=== PATIENT | male | born 1950 | race Caucasian/White ===

== ENCOUNTER 2019-06-18 12:24 | Outpatient (CLI) | payer MEDICARE, BC, SELFPAY ==
--- NOTE | ~2019-06-18 | US_ITS ---
EXAMINATION: US carotid duplex BI DATE: 06/18/2019 13:00 INDICATION: Dizziness TECHNIQUE: Grayscale, color Doppler, and pulsed Doppler images of the cervical carotid arteries were obtained. The degree of vessel stenosis is placed in one of the following categories: normal, <50%, 5 0-69%, >=70% but less than near-occlusion, near-occlusion, or total occlusion. Note that percent sten osis relative to normal distal artery lumen diameter is indirectly measured from velocity measurement s as described by Gonzalez, et al. Radiology 2003; 229:340-346. Notes: Normal: Peak systolic velocity <125 centimeters/sec and no plaque <50%. Peak systolic velocity <125 ( EDV <40; ICA/CCA PSV ratio <2.0; used these factors only a tandem lesions or low cardiac output or co ntralateral disease) 50-69 %: PSV 125-230 (EDV 40-100; ratio 2-4) >= 70% but less than near occlusion: PSV greater than 230 (EDV > 100; ratio> 4.0) Near Occlusion: PSV that is variable; markedly narrowed lumen Occlusion: Absent flow on color/spectral Doppler and no lumen on baltazar scale. COMPARISON: None. FINDINGS: RIGHT: The right common carotid artery (CCA) peak systolic velocity (PSV) is 108 cm/s. The right internal ca rotid artery (ICA) PSV is 49 cm/s. The right ICA end-diastolic velocity (EDV) is 12 cm/s. The right I CA/CCA PSV ratio is 0.5. The external carotid artery (ECA) PSV is 63 cm/s. There is antegrade flow in the right vertebral artery. LEFT: The left CCA PSV is 129 cm/s. The left ICA PSV is 73 cm/s. The left ICA EDV is 21 cm/s. The left ICA/ CCA PSV ratio is 0.6. The ECA PSV is 58 cm/s. There is antegrade flow in the left vertebral artery. IMPRESSION: 1. Less than 50% stenosis in the right internal carotid artery by sonographic criteria. 2. Less than 50% stenosis in the left internal carotid artery by sonographic criteria. Reviewed, dictated and finalized at location B. AD SINGER IMPRESSION: 1. Less than 50% stenosis in the right internal carotid artery by sonographic [address]. 2. Less than 50% stenosis in the left internal carotid artery by sonographic [place].
== END 2019-06-18 12:25 | disposition home or self-care (01) ==
PROVIDERS: PCP Family Medicine; Visit Provider Family Medicine
DX: R42 Dizziness and giddiness (principal); I65.23 Occlusion and stenosis of bilateral carotid arteries
CPT/HCPCS: 93880

== ENCOUNTER → 2022-03-22 11:20 | Outpatient (CLI) | payer MEDICARE, BC, SELFPAY ==
--- NOTE | ~2022-03-22 | XR_ITS ---
XR hip RT min 3V w AP pelvis DATE: 03/22/2022 11:34 INDICATION: Anterior right hip pain for many years TECHNIQUE: AP pelvis. AP and lateral views of right hip COMPARISON: None FINDINGS: The pubic symphysis and sacroiliac joints are intact. No pelvic fracture or bone destructio n is detected. There is mild right hip osteoarthritis including mild spurring of the right femoral head. Hip joint s paces are symmetric and relatively well preserved. No fracture or dislocation, avascular necrosis or bone destruction of the right hip is detected. IMPRESSION: Mild right hip osteoarthritis Reviewed, dictated and finalized at location B. LASTER
== END ==
PROVIDERS: PCP Family Medicine; Visit Provider Physician Assistant
DX: M25.551 Pain in right hip (principal); M16.11 Unilateral primary osteoarthritis, right hip
CPT/HCPCS: 73502

== ENCOUNTER → 2022-04-30 07:47 | Outpatient (CLI) | payer MEDICARE, BC, SELFPAY ==
--- NOTE | ~2022-04-30 | MR_ITS ---
MRI of the lumbar spine Clinical History: Radiculopathy Technique: Axial T2-weighted images, and sagittal T1-weighted, T2-weighted, and T2 fat-sat images wer e acquired. Findings: There is no fracture or subluxation of the lumbar spine. Vertebral bodies maintain normal h eight and alignment. No focal bone marrow signal abnormality identified. At L1-L2, there is minimal disc bulge. There is facet arthropathy. No lew spinal canal stenosis or neural foraminal narrowing. At L2-L3, diffuse disc bulge and facet arthropathy result in severe thecal sac compression. There is minimal bilateral neural foraminal compromise. At L3-L4, mild disc bulge and mild facet arthropathy are present. No lew spinal canal stenosis pres ent. There is probable minimal bilateral neural foraminal narrowing. At L4-L5, disc bulge and facet arthropathy result in focal severe thecal sac compression. There is mi ld bilateral neural foraminal narrowing. At L5-S1, there is minimal disc bulge with facet arthropathy. There is effacement of the thecal sac w hich appears to be due to focally prominent epidural fat. No neural foraminal narrowing evident. Paravertebral soft tissues are unremarkable. 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 Additional mild degenerative changes, as detailed above. Focally prominent effacement of thecal sac a t L5-S1, which appears to be due to prominent epidural fat. Reviewed, dictated and finalized at [facility]. 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 Additional mild degenerative changes, as detailed above. Focally prominent effa cement of thecal sac at L5-S1, which appears to be due to prominent epidural fa t.
== END ==
PROVIDERS: PCP Family Medicine; Visit Provider Pain Medicine Pain Medicine
DX: M54.16 Radiculopathy, lumbar region (principal); M48.07 Spinal stenosis, lumbosacral region
CPT/HCPCS: 72148

== ENCOUNTER 2023-12-24 09:45 | Inpatient (IN) | payer MEDICARE, BC, SELFPAY ==
[2023-12-24] VITALS (42 sets, daily range): BP systolic 114–181; BP diastolic 73–109; PULSE 84–115; RESP 0–29; TEMP 36.5–36.6; O2SAT 90–99
--- NOTE | ~2023-12-24 | CT_ITS ---
EXAMINATION: CTA chest PE protocol DATE: 12/24/2023 11:59 INDICATION: Shortness of breath with elevated d-dimer and syncope TECHNIQUE: Computed tomography (CT) pulmonary angiogram of the chest was performed with 100 mL Omnipa que-350 intravenous contrast. Additional 3D reconstructions utilizing coronal maximum intensity proje ction (MIP) were performed. Automated exposure control and iterative reconstruction technique were em ployed. The dose-length product was 977.85 mGy-cm. COMPARISON: None FINDINGS: Subtle embolism extending across the bifurcation of the main pulmonary artery and into each of the lo bar and multiple segmental pulmonary arteries in both lungs. There are regions of groundglass opacity in the posterior segment of the left upper lobe and the superior segment of the left lower lobe whic h could be due to pulmonary infarcts or pneumonia. Mild dependent atelectasis in the bilateral lower lobes. No pulmonary edema, pleural effusion or pneumothorax. Heart size is normal. No leftward bowing of the ventricular septum to suggest right heart strain. No pericardial effusion. Thoracic aorta is normal in caliber with no dissection. No pathologically enlarged thoracic lymphadenopathy. Likely wali or bariatric surgery with suture line at the proximal stomach. There are a few splenic and hepatic ca lcifications consistent with old granulomatous disease. IMPRESSION: 1. Pulmonary embolism with large clot burden including a saddle embolism which extends into each of t he lobes of both lungs. There is however no evident right heart strain. 2. Regions of groundglass opacity in the left upper and left lower lobes which could represent pulmon zen infarcts or pneumonia. Reviewed, dictated and finalized at location B. IMPRESSION: 1. Pulmonary embolism with large clot burden including a saddle embolism which extends into each of the lobes of both lungs. There is however no evident right heart strain. 2. Regions of groundglass opacity in the left upper and left lower lobes which could represent pulmonary infarcts or pneumonia.
--- NOTE | ~2023-12-24 | CT_ITS ---
EXAMINATION: CT brain wo con DATE: 12/24/2023 11:23 INDICATION: Syncope TECHNIQUE: Computed tomography (CT) of the head was performed without intravenous contrast. Sagittal and coronal reconstructions were performed. The mA was adjusted according to patient size. Iterative reconstruction technique was employed. The dose-length product was 605.33 mGy-cm. COMPARISON: Brain MR dated 11/17/2013 FINDINGS: No acute intracranial hemorrhage, acute infarction or abnormal extra axial fluid collection. There is mild scattered white matter hypoattenuation consistent with chronic small vessel ischemic disease. Ventricles are normal and symmetric. No mass/mass effect. The orbits, paranasal sinuses and mastoid a ir cells are normal. IMPRESSION: 1. Mild scattered white matter hypoattenuation consistent with chronic small vessel ischemic disease. No acute intracranial process. Reviewed, dictated and finalized at location B. IMPRESSION: 1. Mild scattered white matter hypoattenuation consistent with chronic small ve ssel ischemic disease. No acute intracranial process.
--- NOTE | ~2023-12-24 | XR_ITS ---
EXAMINATION: XR chest 1V portable DATE: 12/24/2023 10:43 INDICATION: Dyspnea. TECHNIQUE: A single frontal view of the chest was obtained. COMPARISON: None. FINDINGS: There is no pneumonia, pleural effusion, or pneumothorax. The heart size is normal. IMPRESSION: 1. No acute cardiopulmonary disease. Reviewed, dictated and finalized at location A.
--- NOTE | ~2023-12-24 | US_ITS ---
EXAMINATION: US venous doppler [facility] DATE: 12/28/2023 10:33 INDICATION: TECHNIQUE: Grayscale ultrasound images without and with compression and Doppler ultrasound images of the bilateral lower extremity veins were obtained. COMPARISON: None. FINDINGS: Noncompressible deep venous anastomosis in the right popliteal vein, gas in the spleen and. Posterior tibial and peroneal veins. The visualized portions of right common femoral vein, profunda (deep) fem oral vein, femoral vein and greater saphenous vein outflow are patent. The visualized portions of left common femoral vein, profunda femoral vein, femoral vein, popliteal v ein, posterior tibial veins, peroneal veins, gastrocnemius vein and greater saphenous vein outflow ar e patent. IMPRESSION: 1. Deep venous anastomosis at the below the right knee in the popliteal, gastrocnemius, posterior ti bial and peroneal veins. 2. No evident deep venous anastomosis in the left lower limb. Reviewed, dictated and finalized at location A. IMPRESSION: 1. Deep venous anastomosis at the below the right knee in the popliteal, gastr ocnemius, posterior tibial and peroneal veins. 2. No evident deep venous anastomosis in the left lower limb.
--- NOTE | ~2023-12-24 | XR_ITS ---
XR chest 1V portable Ordering provider: Marc Aguero MD History: 73 years Male with . Saddle PE follow up . Comparison: December 24, 2023 FINDINGS: MEDIASTINUM: The cardiac silhouette is not enlarged. LUNGS: No infiltrates, effusions or pneumothorax. OTHER: No free air under the diaphragm. Degenerative the spine. IMPRESSION: No acute cardiopulmonary pathology. Reviewed, dictated and finalized at location A.
--- NOTE | 2023-12-24 10:00 | ECG_ITS ---
Test Date: 2023-12-24 10:04:26 Measurements Intervals [place] Rate: 101 P: 32 RI: 185 QRS: 34 QRSD: 105 T: 8 QT: 344 QTc: 448 Interpretive Statements SINUS TACHYCARDIA DELAYED PRECORDIAL R/S TRANSITION MINIMAL Q WAVES- INFERIOR LEADS BASELINE WANDER- AVR, AVL, AVF, V1, V3-V4, V6 BORDERLINE ECG No previous ECG available for comparison Electronically Signed On 12-24-2023 10:07:55 CDT by Justin Jones D.O.
[2023-12-24 10:32] LABS: Basophils Absolute Auto 0.1 K/mm3 (0.0-0.1); Basophils Percent Auto 0.6 % (0.2-1.2); Eosinophils Absolute Auto 0.2 K/mm3 (0-0.3); Eosinophils Percent Auto 2.6 % (0-4.4); Hematocrit 47.1 % (42.0-52.0); Hemoglobin 15.2 g/dL (14.0-18.0); Immature Granulocyte Absolute 0.06 K/mm3 (0.00-0.031); Immature Granulocyte Percent A 0.7 % (0-0.5); Lymphocytes Absolute Auto 1.47 K/mm3 (0.9-3.2); Lymphocytes Percent Auto 16.8 % (18.3-44.2); Mean Corpuscular HGB Conc 32.3 g/dl (32-36); Mean Corpuscular Hemoglobin 29.6 pg (26-34); Mean Corpuscular Volume 91.8 fl (80-100); Mean Platelet Volume 9.7 fl (7.4-10.4); Monocytes Absolute Auto 0.6 K/mm3 (0.1-0.6); Monocytes Percent Auto 6.5 % (2.6-8.5); Neutrophils Absolute Auto 6.4 K/mm3 (1.3-6.7); Neutrophils Percent Auto 72.8 % (45.5-73.1); Platelet Count Result 219 k/mm3 (150-375); Red Blood Count 5.13 M/mm3 (4.6-6.20); Red Cell Distribution Width 13.4 % (11.5-14.5); White Blood Count 8.7 K/mm3 (4.5-10.0)
[2023-12-24 10:43] LABS: Prothrombin Time 13.2 Seconds (11.1-14.7)
[2023-12-24 10:44] LABS: Partial Thromboplastin Time 26.6 Seconds (22.3-36.8)
[2023-12-24 10:49] LABS: Alanine Aminotransferase 18 U/L (6-50); Albumin Level 4.1 g/dL (3.5-5.1); Alkaline Phosphatase 49 U/L (38-126); Anion Gap 12 mmol/L (4-12); Aspartate Amino Transferase 34 U/L (17-59); Bilirubin,Total 0.9 mg/dL (0.2-1.3); Blood Urea Nitrogen 23 mg/dL (9-20); Calcium 8.9 mg/dL (8.4-10.2); Carbon Dioxide 20 mmol/L (22-30); Chloride 106 mmol/L (98-107); Estimated CRCL calculation 68 ml/min; Estimated Glomerular Filt Rate 54; Glucose 161 mg/dL (65-110); Potassium 4.5 mmol/L (3.4-5.0); Sodium 138 mmol/L (137-145)
--- NOTE | 2023-12-24 11:00 | ED.SOB ---
HPI - SOB/Dyspnea General Chief Complaint: Shortness of Breath/Dyspnea <Marylou Krishnan PA-C - Last Filed: 12/28/23 14:32> Stated Complaint: SOB <KINGSLEY Bustamante Last Filed: 12/28/23 14:32> Time Seen by Provider: 12/24/23 10:57 <KINGSLEY Bustamante Last Filed: 12/28/23 14:32> Source: patient <KINGSLEY Bustamante Last Filed: 12/28/23 14:32> Mode of arrival: ambulatory <KINGSLEY Bustamante Last Filed: 12/28/23 14:32> Limitations: no limitations <KINGSLEY Bustamante Last Filed: 12/28/23 14:32> History of Present Illness HPI Narrative: This is a 73 year old male that presents to the ER after syncopal episode last night. Reports he has history of sciatica on the right. He has not been very active because of this. He has had worsening shortness of breath with exertion over the last couple of months. Denies chest pain. Reports last night he had just walked up the steps to his room and felt very short of breath. He was leaned over his bed trying to catch his breath. He woke up on the floor about 20 minutes later. Denies any focal injuries after this. <Marylou Krishnan PA-C - Last Filed: 12/28/23 14:32> Related Data Home Medications: Home Medications Medication Instructions Recorded Confirmed diphenhydramine HCl 50 mg capsule 50 mg PO HS PRN Insomnia 02/22/19 12/27/23 dbvbglmr-ldk-qhzzl acid 0.4 1 tablet PO DAILY 02/22/19 12/27/23 mg-lycopene 300 mcg-lutein 250 mcg tablet (Centrum Silver) omeprazole 20 mg capsule,delayed 20 mg PO DAILY 02/22/19 12/27/23 release icosapent ethyl 1 gram capsule 2 g PO BIDWM 12/27/23 12/27/23 <KINGSLEY Bustamante Last Filed: 12/28/23 14:32> Allergies/Adverse Reactions: Allergies Allergy/AdvReac Type Severity Reaction Status Date / Time metformin AdvReac Severe Diarrhea Verified 12/25/23 07:28 Nsrscwu-BZF-AfH Reductase AdvReac Severe Cramping Verified 12/25/23 07:28 Inhibitor of the [Ytomzhj-Mgo-Yen Reductase Muscles Inhibitor] <Marylou Krishnan PA-C - Last Filed: 12/28/23 14:32> Review of Systems Review of Systems: CONSTITUTIONAL: Denies fever CARDIOVASCULAR: Denies chest pain RESPIRATORY: Reports dyspnea. <Marylou Krishnan PA-C - Last Filed: 12/28/23 14:32> All systems reviewed & are unremarkable except as noted in HPI and below <Marylou Krishnan PA-C - Last Filed: 12/28/23 14:32> [facility] Past Medical History Medical History: Medical History Bilateral carotid bruits Borderline hypothyroidism BPV (benign positional vertigo) Gall bladder disease GERD (gastroesophageal reflux disease) Hyperlipidemia Hypertension Lumbar stenosis Morbid obesity with BMI of 50.0-59.9, adult Peripheral polyneuropathy Sciatica Severe obstructive sleep apnea Type 2 diabetes mellitus with hyperglycemia Vitamin D deficiency <Marylou Krishnan PA-C - Last Filed: 12/28/23 14:32> Surgical History Surgical History: Surgical History History of cholecystectomy History of gastric bypass w/reversal History of tonsillectomy <Marlyou Krishnan PA-C - Last Filed: 12/28/23 14:32> Family History Family History: Family History Father Acute myocardial infarction Grandparent Acute myocardial infarction Mother Acute myocardial infarction Other Diabetes mellitus Family history of arthritis Family history of cardiovascular disease Hypertension <Marylou Krishnan PA-C - Last Filed: 12/28/23 14:32> Social History Social History: Social History Smoking status: Never smoker Second hand tobacco smoke exposure: No Alcohol intake: never Alcohol use details: Rarely. Substance use: never Substance use type: does not use Do You Feel Safe in you
[2023-12-24 11:01] LABS: NT Pro B Type Natriuretic Pept 495 pg/mL (19.9-100); Troponin I 0.053 ng/mL (0.000-0.034)
[2023-12-24 11:29] LABS: D Dimer 9.11 ug/mL (<0.48)
[2023-12-24] MEDS: HEPARIN SODIUM 5,000 UNITS/ML VIAL 8500 UNITS IV PUSH (12:21)
[2023-12-24] MEDS: HEPARIN SOD/D5W 100 UNITS/ML 25,000 UNITS/250 ML BAG 15 UNITS IV CONT (12:33)
--- NOTE | 2023-12-24 13:58 | ECG_ITS ---
Test Date: 2023-12-24 13:58:23 Measurements Intervals [place] Rate: 93 P: 30 MN: 178 QRS: 29 QRSD: 102 T: 3 QT: 348 QTc: 435 Interpretive Statements SINUS RHYTHM BORDERLINE ST-T WAVE ABNORMALITY- ANT/INF LEADS BORDERLINE ECG Compared to ECG 12/24/2023 10:04:26 HEART RATE HAS DECREASED Electronically Signed On 12-24-2023 14:41:43 CDT by Justin Jones D.O.
[2023-12-24 14:32] LABS: Troponin I 0.044 ng/mL (0.000-0.034)
--- NOTE | 2023-12-24 14:38 | PC.NURSE ---
Patient has been accepted to the medical ICU at [facility] at this time. Gave triage report to Lamar at this time on the transfer line.
[2023-12-24 15:37] LABS: Glucose Point of Care 106 mg/dl (65-105)
[2023-12-24 19:07] LABS: Partial Thromboplastin Time 46.6 Seconds (22.3-36.8)
[2023-12-24] MEDS: METOPROLOL SUCCINATE EXT REL 50 MG TABCR 150 MG PO (19:28)
[2023-12-24] MEDS: hydroCHLOROthiazide 12.5 MG CAPSULE PO (19:28)
[2023-12-24] MEDS: LOSARTAN POTASSIUM 100 MG TABLET PO (19:29)
--- NOTE | 2023-12-24 19:35 | PC.NURSE ---
This RN titrated pt heparin drip from 15 mls/hr to 19mls/hr due to pts ptt results of 46.6. According to heparin drip protocols if ptt is less than 55 increase rate 4ml/hr.
--- NOTE | 2023-12-24 20:35 | PC.NURSE ---
Pt son left phone number Drew Epstein - Son [phone]
[2023-12-24 23:48] LABS: Glucose Point of Care 111 mg/dl (65-105)
[2023-12-25] VITALS (33 sets, daily range): BP systolic 134–166; BP diastolic 63–109; PULSE 81–102; RESP 13–35; TEMP 36.3–36.6; O2SAT 93–99
--- NOTE | 2023-12-25 00:17 | PC.NURSE ---
Pt was given hospital bed at 0010.
[2023-12-25 03:48] LABS: Basophils Absolute Auto 0.1 K/mm3 (0.0-0.1); Basophils Percent Auto 0.6 % (0.2-1.2); Eosinophils Absolute Auto 0.3 K/mm3 (0-0.3); Eosinophils Percent Auto 3.8 % (0-4.4); Hematocrit 44.3 % (42.0-52.0); Hemoglobin 14.4 g/dL (14.0-18.0); Immature Granulocyte Absolute 0.07 K/mm3 (0.00-0.031); Immature Granulocyte Percent A 0.8 % (0-0.5); Lymphocytes Absolute Auto 2.15 K/mm3 (0.9-3.2); Lymphocytes Percent Auto 24.9 % (18.3-44.2); Mean Corpuscular HGB Conc 32.5 g/dl (32-36); Mean Corpuscular Hemoglobin 29.8 pg (26-34); Mean Corpuscular Volume 91.5 fl (80-100); Mean Platelet Volume 9.9 fl (7.4-10.4); Monocytes Absolute Auto 0.6 K/mm3 (0.1-0.6); Monocytes Percent Auto 6.8 % (2.6-8.5); Neutrophils Absolute Auto 5.4 K/mm3 (1.3-6.7); Neutrophils Percent Auto 63.1 % (45.5-73.1); Platelet Count Result 196 k/mm3 (150-375); Red Blood Count 4.84 M/mm3 (4.6-6.20); Red Cell Distribution Width 13.5 % (11.5-14.5); White Blood Count 8.6 K/mm3 (4.5-10.0)
[2023-12-25 03:58] LABS: Prothrombin Time 13.3 Seconds (11.1-14.7)
[2023-12-25 03:59] LABS: Partial Thromboplastin Time 48.3 Seconds (22.3-36.8)
[2023-12-25] MEDS: HEPARIN SOD/D5W 100 UNITS/ML 25,000 UNITS/250 ML BAG 23 UNITS IV CONT (04:16)
--- NOTE | 2023-12-25 04:30 | PC.NURSE ---
This Rn titrated pt heparin drip by increasing it 4 mls/hr to be infusing at 23mls/hr due to last ptt results.
[2023-12-25] MEDS: HEPARIN SODIUM 5,000 UNITS/ML VIAL 8500 UNITS IV PUSH (05:47)
--- NOTE | 2023-12-25 05:51 | PC.NURSE ---
Late Entry Note: This RN adminstered 8500 unit bolus based on titration protocols due to results of ptt.
--- NOTE | 2023-12-25 09:21 | PC.NURSE ---
no beds available - remains on wait list
--- NOTE | 2023-12-25 11:15 | PC.NURSE ---
Pt asking for home dose of gabapentin. KINGSLEY Hickman made aware.
[2023-12-25] MEDS: GABAPENTIN 300 MG CAPSULE PO (11:36)
--- NOTE | 2023-12-25 13:03 | PC.NURSE ---
Pt ate entire lunch tray other than dessert
[2023-12-25] MEDS: METOPROLOL SUCCINATE EXT REL 100 MG TABCR PO (17:31)
[2023-12-25] MEDS: hydroCHLOROthiazide 12.5 MG CAPSULE PO (17:32)
[2023-12-25] MEDS: LOSARTAN POTASSIUM 100 MG TABLET PO (17:32)
[2023-12-25] MEDS: METOPROLOL SUCCINATE EXT REL 50 MG TABCR PO (17:32)
[2023-12-25] MEDS: HEPARIN SOD/D5W 100 UNITS/ML 25,000 UNITS/250 ML BAG 20 UNITS IV CONT (17:34)
--- NOTE | 2023-12-25 18:20 | PC.NURSE ---
No Bed - Remains on Bed wait list
--- NOTE | 2023-12-25 18:33 | PC.NURSE ---
PTT is 77. No bolus or titration necessary at this time.
--- NOTE | 2023-12-25 21:34 | PC.NURSE ---
Spoke with Monalisa from [facility] transfer for status update. Pt still on waitlist at this time.
--- NOTE | 2023-12-25 22:00 | PC.NURSE ---
Pt was able to ambulate to the restroom and freshen up with provided hygiene supplies. New gown provided.
[2023-12-25 23:20] LABS: Glucose Point of Care 162 mg/dl (65-105)
[2023-12-25 23:28] LABS: Partial Thromboplastin Time 68.5 Seconds (22.3-36.8)
--- NOTE | 2023-12-25 23:32 | ECG_ITS ---
Test Date: 2023-12-25 23:32:17 Measurements Intervals [place] Rate: 88 P: 32 CT: 196 QRS: 34 QRSD: 104 T: 21 QT: 370 QTc: 450 Interpretive Statements SINUS RHYTHM BASELINE ARTIFACT- I, II, AVR, AVL, AVF NORMAL ECG Compared to ECG 12/24/2023 13:58:23 No significant changes Electronically Signed On 12-26-2023 13:08:27 CDT by Justin Jones D.O.
[2023-12-25] MEDS: HEPARIN SODIUM 5,000 UNITS/ML VIAL 4000 UNITS IV PUSH (23:34)
[2023-12-26] VITALS (52 sets, daily range): BP systolic 114–158; BP diastolic 58–92; PULSE 78–100; RESP 14–31; TEMP 36.4–36.8; O2SAT 75–100
[2023-12-26] MEDS: HEPARIN SOD/D5W 100 UNITS/ML 25,000 UNITS/250 ML BAG 22 UNITS IV CONT ×2 (05:42→17:12)
[2023-12-26 06:13] LABS: Prothrombin Time 13.9 Seconds (11.1-14.7)
[2023-12-26 06:15] LABS: Partial Thromboplastin Time 92.2 Seconds (22.3-36.8)
--- NOTE | 2023-12-26 07:59 | PC.NURSE ---
Assumed care. Pt sleeping.
--- NOTE | 2023-12-26 10:40 | PC.NURSE ---
[facility] transfer center called, they will call when bed becomes available.
--- NOTE | 2023-12-26 11:42 | PC.NURSE ---
pt was concerned with his blood sugar due to being a T2DM. this RN checked it at this time and it was in the 150s
[2023-12-26 11:43] LABS: Glucose Point of Care 158 mg/dl (65-105)
[2023-12-26 11:53] LABS: Partial Thromboplastin Time 80.7 Seconds (22.3-36.8)
[2023-12-26 19:23] LABS: Partial Thromboplastin Time 79.1 Seconds (22.3-36.8)
[2023-12-26] MEDS: hydroCHLOROthiazide 12.5 MG CAPSULE PO (19:50)
[2023-12-26] MEDS: LOSARTAN POTASSIUM 100 MG TABLET PO (19:50)
[2023-12-26] MEDS: METOPROLOL SUCCINATE EXT REL 50 MG TABCR PO (19:51)
[2023-12-26] MEDS: METOPROLOL SUCCINATE EXT REL 100 MG TABCR PO (19:51)
--- NOTE | 2023-12-26 22:15 | PC.NURSE ---
Aguilar from [facility] transfer center called at this time to get an update on the pt. Aguilar said still waiting for a bed in the ICU for the pt
--- NOTE | 2023-12-26 23:30 | PC.NURSE ---
pt was escorted via wheelchair by this RN and a tech to take a shower. pt had his Heparin drip still running
[2023-12-27] VITALS (23 sets, daily range): BP systolic 106–159; BP diastolic 56–89; PULSE 80–111; RESP 14–20; TEMP 36.4–37.1; O2SAT 94–100; BMI 47.5
[2023-12-27 01:13] LABS: Basophils Absolute Auto 0.1 K/mm3 (0.0-0.1); Basophils Percent Auto 0.7 % (0.2-1.2); Eosinophils Absolute Auto 0.3 K/mm3 (0-0.3); Eosinophils Percent Auto 3.6 % (0-4.4); Hematocrit 43.3 % (42.0-52.0); Hemoglobin 14.1 g/dL (14.0-18.0); Immature Granulocyte Absolute 0.08 K/mm3 (0.00-0.031); Lymphocytes Absolute Auto 1.32 K/mm3 (0.9-3.2); Mean Corpuscular HGB Conc 32.6 g/dl (32-36); Mean Corpuscular Hemoglobin 29.6 pg (26-34); Mean Corpuscular Volume 90.8 fl (80-100); Mean Platelet Volume 9.4 fl (7.4-10.4); Monocytes Absolute Auto 0.6 K/mm3 (0.1-0.6); Neutrophils Absolute Auto 5.9 K/mm3 (1.3-6.7); Neutrophils Percent Auto 71.7 % (45.5-73.1); Platelet Count Result 218 k/mm3 (150-375); Red Blood Count 4.77 M/mm3 (4.6-6.20); Red Cell Distribution Width 13.2 % (11.5-14.5); White Blood Count 8.2 K/mm3 (4.5-10.0)
[2023-12-27 01:23] LABS: Prothrombin Time 13.4 Seconds (11.1-14.7)
[2023-12-27 01:25] LABS: Partial Thromboplastin Time 81.1 Seconds (22.3-36.8)
[2023-12-27 01:29] LABS: Alanine Aminotransferase 25 U/L (6-50); Albumin Level 3.8 g/dL (3.5-5.1); Alkaline Phosphatase 53 U/L (38-126); Anion Gap 10 mmol/L (4-12); Aspartate Amino Transferase 37 U/L (17-59); Bilirubin,Total 0.6 mg/dL (0.2-1.3); Blood Urea Nitrogen 25 mg/dL (9-20); Calcium 9.4 mg/dL (8.4-10.2); Carbon Dioxide 25 mmol/L (22-30); Chloride 101 mmol/L (98-107); Estimated CRCL calculation 63 ml/min; Estimated Glomerular Filt Rate 50; Glucose 157 mg/dL (65-110); Potassium 3.7 mmol/L (3.4-5.0); Sodium 136 mmol/L (137-145)
[2023-12-27] MEDS: HEPARIN SOD/D5W 100 UNITS/ML 25,000 UNITS/250 ML BAG 22 UNITS IV CONT ×3 (03:32→16:06)
--- NOTE | 2023-12-27 04:51 | PC.NURSE ---
C called for update on pt bed status and reported there is still no open beds.
--- NOTE | 2023-12-27 04:55 | PC.NURSE ---
Pt has had no complaints since this RN assumed care at 2300. Pt resting comfortably.
[2023-12-27] MEDS: GABAPENTIN 300 MG CAPSULE PO ×3 (06:34→20:49)
[2023-12-27 06:41] LABS: Basophils Absolute Auto 0.1 K/mm3 (0.0-0.1); Basophils Percent Auto 0.6 % (0.2-1.2); Eosinophils Absolute Auto 0.4 K/mm3 (0-0.3); Eosinophils Percent Auto 4.6 % (0-4.4); Hematocrit 41.9 % (42.0-52.0); Hemoglobin 13.4 g/dL (14.0-18.0); Immature Granulocyte Absolute 0.08 K/mm3 (0.00-0.031); Lymphocytes Absolute Auto 1.86 K/mm3 (0.9-3.2); Lymphocytes Percent Auto 22.4 % (18.3-44.2); Mean Corpuscular Hemoglobin 29.3 pg (26-34); Mean Corpuscular Volume 91.5 fl (80-100); Mean Platelet Volume 9.3 fl (7.4-10.4); Monocytes Absolute Auto 0.7 K/mm3 (0.1-0.6); Monocytes Percent Auto 8.1 % (2.6-8.5); Neutrophils Absolute Auto 5.3 K/mm3 (1.3-6.7); Neutrophils Percent Auto 63.3 % (45.5-73.1); Platelet Count Result 211 k/mm3 (150-375); Red Blood Count 4.58 M/mm3 (4.6-6.20); Red Cell Distribution Width 13.2 % (11.5-14.5); White Blood Count 8.3 K/mm3 (4.5-10.0)
[2023-12-27 06:42] LABS: Glucose Point of Care 125 mg/dl (65-105)
[2023-12-27 06:49] LABS: Anion Gap 9 mmol/L (4-12); Blood Urea Nitrogen 25 mg/dL (9-20); Calcium 9.4 mg/dL (8.4-10.2); Carbon Dioxide 26 mmol/L (22-30); Chloride 101 mmol/L (98-107); Estimated CRCL calculation 73 ml/min; Estimated Glomerular Filt Rate 59; Glucose 123 mg/dL (65-110); Sodium 136 mmol/L (137-145)
[2023-12-27 07:48] LABS: Prothrombin Time 13.5 Seconds (11.1-14.7)
--- NOTE | 2023-12-27 07:48 | PC.NURSE ---
Lab called regarding troponin and BNP add-on.
[2023-12-27 07:50] LABS: Partial Thromboplastin Time 89.2 Seconds (22.3-36.8)
--- NOTE | 2023-12-27 08:12 | PC.NURSE ---
spoke with Natalee at [facility] transfer center for update. no bed at this time
[2023-12-27 08:33] LABS: NT Pro B Type Natriuretic Pept 88 pg/mL (19.9-100); Troponin I < 0.012 ng/mL (0.000-0.034)
--- NOTE | 2023-12-27 08:40 | PC.NURSE ---
Oxygen removed from patient per verbal order from provider
--- NOTE | 2023-12-27 08:57 | PC.NURSE ---
Patient resting in recliner at this time. Patient doing well on room air and denies increasing SOB. Light dimmed for patient comfort. No other requests at this time
--- NOTE | 2023-12-27 10:29 | ADMGEN ---
Addendum entered by Savannah Powell RN 12/27/23 11:16: Report received from JUAN Blackwell @ [phone] Original Note: This patient, Jaylen Epstein, was admitted to IMU Room 210-01 at 1029. Patient/family oriented to hospital policies and general routines including ID bracelet, bed and alarms, visiting hours, pain management, procedures, bathroom and other care routines, personal items, smoking policy, room service/diet, and visiting hours. Information on how to activate the Rapid Response Team has been discussed. Patient/Family are encouraged to report perceived risks to care and to ask questions if they do not understand what they are told or what they should do.
[2023-12-27 11:52] LABS: Glucose Point of Care 151 mg/dl (65-105)
--- NOTE | 2023-12-27 12:28 | PM.IMHP ---
H&P: HPI History of Present Illness Date/Time: 12/27/23 12:28 Chief Complaint: Shortness of Breath Narrative: 73 y/o M presents here with shortness of breath and syncope with PMH of HTN, HLD, DM2, severe MARSHA, The patient presents here from home for further evaluation of shortness of breath and syncope. First noted exertional shortness of breath within the last month, was unable to walk at a car show November 29. Shortness of breath dissipates with rest. Reports accompanying cough with metallic taste (no blood) and feels upper chest congestion that started today. Denies accompanying fever, chills, or body aches. The patient reports he began feeling severely short of breath last night after climbing a flight of stairs to his bedroom. He reports he leaned over his bed in attempts to rest and catch his breath. While attempting to catch his breath the patient had a syncopal episode. In addition to shortness of breath, he reports no other symptoms prior to syncope. Denied chest pain, dizziness, palpitations or diaphoresis prior. Reports he was unconscious for approximately 20 minutes. After the syncopal episode the patient reported nausea, diaphoresis, and dizziness. Denies head strike, pain, or injury from syncopal episode Afterwards patient was able to put his CPAP back on and slept the rest of the night. Patient reports when he woke the next morning he was able to do the stairs without shortness of breath. Patient is not on a blood thinner. He reports he has been more sedentary over the last 2 years due to right-sided sciatica. However he reports since spring of this year he has not been able to tolerate standing due to numbness in the RLE which has led to further immobility. Patient reports he has been taking Tylenol and limited dose of Gabapentin (states more than one dose makes him dizzy). Patient reports travel to [facility] (3-4 hr car ride) but they stopped once an hour. Denies recent surgeries or malignancy. Initial VS at presentation: 97.7? F, HR 115, RR 20, 160/109, and 94% on RA. ED workup showed: No leukocytosis, hemoglobin 14.1, INR 1.0, sodium 136, creatinine 1.2 and GFR 59, glucose 123, initial troponin negative, and BNP 88. CXR showed no acute cardiopulmonary disease. Head CT showed chronic small-vessel ischemic disease, otherwise no acute intracranial process. Chest CTA showed a PE with large clot burden including a saddle embolism which extends into each of the lower lobes of both lungs without right heart strain and regions of ground-glass opacities in the left upper and left lower lobes which could represent pulmonary infarcts or pneumonia. Review of Systems Review of Systems: All systems reviewed & are unremarkable except as noted in HPI and below PMFSH Past Medical History Medical History Bilateral carotid bruits Borderline hypothyroidism BPV (benign positional vertigo) Gall bladder disease GERD (gastroesophageal reflux disease) Hyperlipidemia Hypertension Lumbar stenosis Morbid obesity with BMI of 50.0-59.9, adult Peripheral polyneuropathy Sciatica Severe obstructive sleep apnea Type 2 diabetes mellitus with hyperglycemia Vitamin D deficiency Surgical History Surgical History History of cholecystectomy History of gastric bypass w/reversal History of tonsillectomy Family History Family History Father Acute myocardial infarction Grandparent Acute myocardial infarction Mother Acute myocardial infarction Other Diabetes mellitus Family history of arthritis Family history of cardiovascular disease Hypertension Social History Social History Smoking status: Never smoker Second hand tobacco smoke exposure: No Alcohol intake: never Alcohol use details: Rarely.
[2023-12-27 15:48] LABS: Glucose Point of Care 151 mg/dl (65-105)
[2023-12-27] MEDS: hydroCHLOROthiazide 12.5 MG CAPSULE PO (16:04)
[2023-12-27] MEDS: MULTIVITAMINS /C LUTEIN (CENTRUM SILVER) TABLET *BKC 1 TAB PO (16:05)
[2023-12-27] MEDS: FENOFIBRATE NANOCRYSTALLIZED 145 MG TABLET PO (16:05)
[2023-12-27] MEDS: OMEGA 3 POLYUNSAT FATTY ACIDS 1 GM CAP 2 GM PO (16:05)
[2023-12-27] MEDS: LOSARTAN POTASSIUM 100 MG TABLET PO (16:05)
[2023-12-27] MEDS: METOPROLOL SUCCINATE EXT REL 50 MG TABCR 150 MG PO (16:05)
[2023-12-27] MEDS: PIOGLITAZONE HCL 30 MG TABLET PO (16:05)
[2023-12-27] MEDS: EMPAGLIFLOZIN 25 MG TABLET PO (16:05)
[2023-12-27] MEDS: PANTOPRAZOLE 40 MG TABLET PO (16:05)
[2023-12-27] MEDS: WATER FOR IRRIGATION, STERILE 1,000 ML BOTTLE 1000 ML (20:49)
[2023-12-27 21:11] LABS: Glucose Point of Care 152 mg/dl (65-105)
[2023-12-28] VITALS (20 sets, daily range): BP systolic 101–132; BP diastolic 56–94; PULSE 75–91; RESP 14–20; TEMP 35.9–37; O2SAT 95–99
[2023-12-28] MEDS: HEPARIN SOD/D5W 100 UNITS/ML 25,000 UNITS/250 ML BAG 22 UNITS IV CONT ×2 (03:38→15:12)
[2023-12-28 04:47] LABS: Basophils Absolute Auto 0.1 K/mm3 (0.0-0.1); Basophils Percent Auto 0.7 % (0.2-1.2); Eosinophils Absolute Auto 0.3 K/mm3 (0-0.3); Eosinophils Percent Auto 4.8 % (0-4.4); Hematocrit 43.4 % (42.0-52.0); Hemoglobin 13.5 g/dL (14.0-18.0); Immature Granulocyte Absolute 0.09 K/mm3 (0.00-0.031); Immature Granulocyte Percent A 1.3 % (0-0.5); Lymphocytes Absolute Auto 1.94 K/mm3 (0.9-3.2); Lymphocytes Percent Auto 27.5 % (18.3-44.2); Mean Corpuscular HGB Conc 31.1 g/dl (32-36); Mean Corpuscular Hemoglobin 28.6 pg (26-34); Mean Corpuscular Volume 91.9 fl (80-100); Mean Platelet Volume 9.6 fl (7.4-10.4); Monocytes Absolute Auto 0.5 K/mm3 (0.1-0.6); Monocytes Percent Auto 7.7 % (2.6-8.5); Neutrophils Absolute Auto 4.1 K/mm3 (1.3-6.7); Platelet Count Result 233 k/mm3 (150-375); Red Blood Count 4.72 M/mm3 (4.6-6.20); Red Cell Distribution Width 13.4 % (11.5-14.5); White Blood Count 7.1 K/mm3 (4.5-10.0)
[2023-12-28 04:58] LABS: Alanine Aminotransferase 29 U/L (6-50); Albumin Level 3.7 g/dL (3.5-5.1); Alkaline Phosphatase 52 U/L (38-126); Anion Gap 10 mmol/L (4-12); Aspartate Amino Transferase 41 U/L (17-59); Bilirubin,Total 0.7 mg/dL (0.2-1.3); Blood Urea Nitrogen 28 mg/dL (9-20); Calcium 9.4 mg/dL (8.4-10.2); Carbon Dioxide 23 mmol/L (22-30); Chloride 101 mmol/L (98-107); Estimated CRCL calculation 63 ml/min; Estimated Glomerular Filt Rate 50; Glucose 139 mg/dL (65-110); Potassium 3.9 mmol/L (3.4-5.0); Sodium 134 mmol/L (137-145)
[2023-12-28 05:01] LABS: Partial Thromboplastin Time 101.9 Seconds (22.3-36.8)
[2023-12-28 05:24] LABS: Hemoglobin A1C 6.3 % (<5.7)
[2023-12-28 08:05] LABS: Glucose Point of Care 156 mg/dl (65-105)
[2023-12-28] MEDS: MULTIVITAMINS /C LUTEIN (CENTRUM SILVER) TABLET *BKC 1 TAB PO (08:07)
[2023-12-28] MEDS: hydroCHLOROthiazide 12.5 MG CAPSULE PO (08:07)
[2023-12-28] MEDS: FENOFIBRATE NANOCRYSTALLIZED 145 MG TABLET PO (08:07)
[2023-12-28] MEDS: PANTOPRAZOLE 40 MG TABLET PO (08:07)
[2023-12-28] MEDS: GABAPENTIN 300 MG CAPSULE PO ×2 (08:07→20:34)
[2023-12-28] MEDS: OMEGA 3 POLYUNSAT FATTY ACIDS 1 GM CAP 2 GM PO ×2 (08:07→17:29)
[2023-12-28] MEDS: METOPROLOL SUCCINATE EXT REL 50 MG TABCR 150 MG PO (08:08)
[2023-12-28] MEDS: EMPAGLIFLOZIN 25 MG TABLET PO (08:08)
[2023-12-28] MEDS: LOSARTAN POTASSIUM 100 MG TABLET PO (08:08)
--- NOTE | 2023-12-28 09:37 | PC.NURSE ---
Updated JUAN Albright, from [facility] transfer center. No beds available at this time.
--- NOTE | 2023-12-28 09:42 | PM.IMPN ---
Progress Note: A&P Assessment and Plan (1) Pulmonary embolism: Qualifiers: Acute cor pulmonale presence: without acute cor pulmonale Chronicity: acute Pulmonary embolism type: saddle Qualified Code(s): I26.92 - Saddle embolus of pulmonary artery without acute cor pulmonale Code(s): I26.99 - Other pulmonary embolism without acute cor pulmonale Status: Acute Assessment and Plan: - Chest CTA: 1. Pulmonary embolism with large clot burden including a saddle embolism which extends into each of the lobes of both lungs. There is however no evident right heart strain. 2. Regions of groundglass opacity in the left upper and left lower lobes which could represent pulmonary infarcts or pneumonia. US LE : IMPRESSION: 1. Deep venous thrombosis at the below the right knee in the popliteal, gastrocnemius, posterior tibial and peroneal veins. 2. No evident deep venous thrombosis in the left lower limb. - reviewed CTA, opacities more likely pulmonary hemorrhage. Patient reporting chest congestion and cough, otherwise no systemic symptoms (i.e. fever, chills, body aches). Continue to follow WBC, low threshold for starting ABX if concerns for pneumonia increase. - add US of BLE - started on heparin gtt - patient educated on red flag symptoms to alert the staff to - suspect clot development secondary to recent change in activity secondary to pain from sciatica - awaiting transfer to [facility] - admission to IMU w/telemetry for close monitoring (2) Syncope: Qualifiers: Syncope type: unspecified Qualified Code(s): R55 - Syncope and collapse Code(s): R55 - Syncope and collapse Status: Acute Assessment and Plan: - Head CT: Mild scattered white matter hypoattenuation consistent with chronic small vessel ischemic disease. No acute intracranial process. - CXR: No acute cardiopulmonary disease. - troponin: 0.053 -> 0.044 -> <0.012 - EKG, initial: Sinus tachycardia, delayed precordial RS transition, minimal Q-waves inferior leads, baseline wander. No previous available for comparison. - EKG, repeat (1): Heart rate decreased when compared to EKG done earlier today. - EKG, repeat (2): No significant changes when compared to EKG done earlier today. - suspect syncope secondary to PE due to likely combination of potential hypoxia and sudden drop in cardiac output/cerebral blood flow. No active chest pain. - telemetry monitoring (3) Type 2 diabetes mellitus with hyperglycemia: Qualifiers: Diabetes mellitus exterminator insulin use: without mcfp use Qualified Code(s): E11.65 - Type 2 diabetes mellitus with hyperglycemia Code(s): E11.65 - Type 2 diabetes mellitus with hyperglycemia Status: Acute Assessment and Plan: - hypoglycemia protocol - POC blood glucose ACHS - home medication: Farxiga, Glimepiride, Actos. Hold Ozempic. - correct regimen ordered - high dose TIDWM based off PMI - A1C 6.9% on 09/17/2023, update (4) Hypertension: Qualifiers: Hypertension type: primary hypertension Qualified Code(s): I10 - Essential (primary) hypertension Code(s): I10 - Essential (primary) hypertension Status: Acute Assessment and Plan: - chronic, currently 133/68 - continue home medications: Losartan, metoprolol - monitor (5) Severe obstructive sleep apnea: Code(s): G47.33 - Obstructive sleep apnea (adult) (pediatric) Status: Acute Assessment and Plan: - continue home CPAP Plan Diet: Heart healthy GI Prophylaxis: Not currently indicated DVT Prophylaxis: Heparin Lines: Peripheral Code Status: Full code Subjective Date/time seen: 12/28/23 09:42 Interval history: Examine the patient at the bedside with his son who is the power of [employer] business for his medical decision. Patient is admitted due to the pulmonary embolism. Currently awaiting for transfer to the [facility]. Patient lives by himself
[2023-12-28 12:18] LABS: Glucose Point of Care 145 mg/dl (65-105)
[2023-12-28 15:31] LABS: Glucose Point of Care 137 mg/dl (65-105)
--- NOTE | 2023-12-28 16:19 | PC.NURSE ---
Reviewed and Approved charting for [facility] SN Racquel/ Olga
[2023-12-28 20:39] LABS: Glucose Point of Care 138 mg/dl (65-105)
[2023-12-29] VITALS (22 sets, daily range): BP systolic 106–127; BP diastolic 55–77; PULSE 78–88; RESP 16–24; TEMP 36.1–36.7; O2SAT 92–100
[2023-12-29] MEDS: HEPARIN SOD/D5W 100 UNITS/ML 25,000 UNITS/250 ML BAG 22 UNITS IV CONT ×2 (01:59→13:33)
[2023-12-29 05:11] LABS: Hematocrit 40.3 % (42.0-52.0); Hemoglobin 13.1 g/dL (14.0-18.0); Mean Corpuscular HGB Conc 32.5 g/dl (32-36); Mean Corpuscular Hemoglobin 29.2 pg (26-34); Mean Platelet Volume 9.6 fl (7.4-10.4); Platelet Count Result 220 k/mm3 (150-375); Red Blood Count 4.48 M/mm3 (4.6-6.20); Red Cell Distribution Width 13.3 % (11.5-14.5); White Blood Count 6.8 K/mm3 (4.5-10.0)
[2023-12-29 05:32] LABS: Albumin Level 3.6 g/dL (3.5-5.1); Chloride 101 mmol/L (98-107); Potassium 3.6 mmol/L (3.4-5.0); Sodium 134 mmol/L (137-145)
[2023-12-29 05:40] LABS: Alanine Aminotransferase 35 U/L (6-50); Alkaline Phosphatase 51 U/L (38-126); Anion Gap 8 mmol/L (4-12); Aspartate Amino Transferase 39 U/L (17-59); Bilirubin,Total 0.7 mg/dL (0.2-1.3); Blood Urea Nitrogen 25 mg/dL (9-20); Calcium 9.2 mg/dL (8.4-10.2); Carbon Dioxide 25 mmol/L (22-30); Estimated CRCL calculation 59 ml/min; Estimated Glomerular Filt Rate 46; Glucose 138 mg/dL (65-110)
[2023-12-29 06:18] LABS: Partial Thromboplastin Time 98.2 Seconds (22.3-36.8)
[2023-12-29 07:32] LABS: Glucose Point of Care 162 mg/dl (65-105)
[2023-12-29] MEDS: OMEGA 3 POLYUNSAT FATTY ACIDS 1 GM CAP 2 GM PO ×2 (09:57→16:20)
[2023-12-29] MEDS: GABAPENTIN 300 MG CAPSULE PO ×2 (09:57→21:06)
[2023-12-29] MEDS: MULTIVITAMINS /C LUTEIN (CENTRUM SILVER) TABLET *BKC 1 TAB PO (09:57)
[2023-12-29] MEDS: METOPROLOL SUCCINATE EXT REL 50 MG TABCR 150 MG PO (09:57)
[2023-12-29] MEDS: LOSARTAN POTASSIUM 100 MG TABLET PO (09:58)
[2023-12-29] MEDS: EMPAGLIFLOZIN 25 MG TABLET PO (09:58)
[2023-12-29] MEDS: hydroCHLOROthiazide 12.5 MG CAPSULE PO (09:58)
[2023-12-29] MEDS: FENOFIBRATE NANOCRYSTALLIZED 145 MG TABLET PO (09:59)
[2023-12-29] MEDS: PANTOPRAZOLE 40 MG TABLET PO (09:59)
[2023-12-29 11:19] LABS: Glucose Point of Care 140 mg/dl (65-105)
--- NOTE | 2023-12-29 12:31 | PM.IMPN ---
Progress Note: A&P Assessment and Plan (1) Pulmonary embolism: Qualifiers: Acute cor pulmonale presence: without acute cor pulmonale Chronicity: acute Pulmonary embolism type: saddle Qualified Code(s): I26.92 - Saddle embolus of pulmonary artery without acute cor pulmonale Code(s): I26.99 - Other pulmonary embolism without acute cor pulmonale Status: Acute Assessment and Plan: - Chest CTA: 1. Pulmonary embolism with large clot burden including a saddle embolism which extends into each of the lobes of both lungs. There is however no evident right heart strain. 2. Regions of groundglass opacity in the left upper and left lower lobes which could represent pulmonary infarcts or pneumonia. US LE : IMPRESSION: 1. Deep venous thrombosis at the below the right knee in the popliteal, gastrocnemius, posterior tibial and peroneal veins. 2. No evident deep venous thrombosis in the left lower limb. - reviewed CTA, opacities more likely pulmonary hemorrhage. Patient reporting chest congestion and cough, otherwise no systemic symptoms (i.e. fever, chills, body aches). Continue to follow WBC, low threshold for starting ABX if concerns for pneumonia increase. - add US of BLE - started on heparin gtt - patient educated on red flag symptoms to alert the staff to - suspect clot development secondary to recent change in activity secondary to pain from sciatica - awaiting transfer to [facility] - admission to IMU w/telemetry for close monitoring (2) Syncope: Qualifiers: Syncope type: unspecified Qualified Code(s): R55 - Syncope and collapse Code(s): R55 - Syncope and collapse Status: Acute Assessment and Plan: - Head CT: Mild scattered white matter hypoattenuation consistent with chronic small vessel ischemic disease. No acute intracranial process. - CXR: No acute cardiopulmonary disease. - troponin: 0.053 -> 0.044 -> <0.012 - EKG, initial: Sinus tachycardia, delayed precordial RS transition, minimal Q-waves inferior leads, baseline wander. No previous available for comparison. - EKG, repeat (1): Heart rate decreased when compared to EKG done earlier today. - EKG, repeat (2): No significant changes when compared to EKG done earlier today. - suspect syncope secondary to PE due to likely combination of potential hypoxia and sudden drop in cardiac output/cerebral blood flow. No active chest pain. - telemetry monitoring (3) Type 2 diabetes mellitus with hyperglycemia: Qualifiers: Diabetes mellitus director long term care insulin use: without half-way use Qualified Code(s): E11.65 - Type 2 diabetes mellitus with hyperglycemia Code(s): E11.65 - Type 2 diabetes mellitus with hyperglycemia Status: Acute Assessment and Plan: - hypoglycemia protocol - POC blood glucose ACHS - home medication: Farxiga, Glimepiride, Actos. Hold Ozempic. - correct regimen ordered - high dose TIDWM based off PMI - A1C 6.9% on 09/17/2023, update (4) Hypertension: Qualifiers: Hypertension type: primary hypertension Qualified Code(s): I10 - Essential (primary) hypertension Code(s): I10 - Essential (primary) hypertension Status: Acute Assessment and Plan: - continue home medications: Losartan, metoprolol - monitor (5) Severe obstructive sleep apnea: Code(s): G47.33 - Obstructive sleep apnea (adult) (pediatric) Status: Acute Assessment and Plan: - continue home CPAP Plan Diet: Heart healthy GI Prophylaxis: Not currently indicated DVT Prophylaxis: Heparin Lines: Peripheral Code Status: Full code Subjective Date/time seen: 12/29/23 12:31 Interval history: Patient is currently doing well. When patient was trying to move from the bed bed his oxygen saturation dropped but immediately after wearing nasal cannula it went back up. Patient wants to mobilize from bed to chair. We agree for it. Denies any l
[2023-12-29 16:19] LABS: Glucose Point of Care 141 mg/dl (65-105)
[2023-12-29 20:38] LABS: Glucose Point of Care 142 mg/dl (65-105)
[2023-12-30] VITALS (19 sets, daily range): BP systolic 116–132; BP diastolic 58–77; PULSE 72–94; RESP 15–20; TEMP 36.6–36.8; O2SAT 91–96
[2023-12-30] MEDS: HEPARIN SOD/D5W 100 UNITS/ML 25,000 UNITS/250 ML BAG 22 UNITS IV CONT ×2 (00:10→12:43)
[2023-12-30 05:15] LABS: Hematocrit 41.7 % (42.0-52.0); Hemoglobin 13.6 g/dL (14.0-18.0); Mean Corpuscular HGB Conc 32.6 g/dl (32-36); Mean Corpuscular Hemoglobin 29.7 pg (26-34); Mean Platelet Volume 9.7 fl (7.4-10.4); Platelet Count Result 247 k/mm3 (150-375); Red Blood Count 4.58 M/mm3 (4.6-6.20); Red Cell Distribution Width 13.3 % (11.5-14.5); White Blood Count 7.6 K/mm3 (4.5-10.0)
[2023-12-30 05:27] LABS: Partial Thromboplastin Time 105.5 Seconds (22.3-36.8)
[2023-12-30 05:31] LABS: Alanine Aminotransferase 42 U/L (6-50); Albumin Level 3.8 g/dL (3.5-5.1); Alkaline Phosphatase 54 U/L (38-126); Anion Gap 10 mmol/L (4-12); Aspartate Amino Transferase 44 U/L (17-59); Bilirubin,Total 0.6 mg/dL (0.2-1.3); Blood Urea Nitrogen 24 mg/dL (9-20); Carbon Dioxide 26 mmol/L (22-30); Chloride 100 mmol/L (98-107); Estimated CRCL calculation 67 ml/min; Estimated Glomerular Filt Rate 54; Glucose 146 mg/dL (65-110); Potassium 3.9 mmol/L (3.4-5.0); Sodium 136 mmol/L (137-145)
[2023-12-30] MEDS: EMPAGLIFLOZIN 25 MG TABLET PO (09:48)
[2023-12-30] MEDS: OMEGA 3 POLYUNSAT FATTY ACIDS 1 GM CAP 2 GM PO ×2 (09:48→16:04)
[2023-12-30] MEDS: MULTIVITAMINS /C LUTEIN (CENTRUM SILVER) TABLET *BKC 1 TAB PO (09:48)
[2023-12-30] MEDS: GABAPENTIN 300 MG CAPSULE PO ×2 (09:48→21:46)
[2023-12-30] MEDS: hydroCHLOROthiazide 12.5 MG CAPSULE PO (09:48)
[2023-12-30] MEDS: PANTOPRAZOLE 40 MG TABLET PO (09:48)
[2023-12-30] MEDS: METOPROLOL SUCCINATE EXT REL 50 MG TABCR 150 MG PO (09:48)
[2023-12-30] MEDS: FENOFIBRATE NANOCRYSTALLIZED 145 MG TABLET PO (09:48)
[2023-12-30] MEDS: LOSARTAN POTASSIUM 100 MG TABLET PO (09:48)
--- NOTE | 2023-12-30 11:38 | PC.NURSE ---
[facility] transfer center updated. No beds available at this time.
[2023-12-30 12:00] LABS: Glucose Point of Care 135 mg/dl (65-105)
--- NOTE | 2023-12-30 13:49 | ECHO_ITS ---
Patient Info Name: Jaylen Epstein Age: 73 years : 1950 Gender: Male Ht: 70 in Wt: 331 lbs BSA: 2.80 m2 HR: 92 bpm BP: 132 / 77 mmHg Heart Rhythm: Sinus Rhythm Technical Quality: Poor Exam Date: 12/30/2023 3:30 PM Exam Location: Echo Lab Patient Status: Inpatient Admit Date: 12/27/2023 Staff Ordering Physician: Marc Aguero MD Expressive Art Therapist: Nayan Tomas RDCS Attending Provider: Seferino Freeman MD Exam Type: CA echo dop color flow w con Study Info Indications - saddle PE Complete two-dimensional, color flow and Doppler transthoracic echocardiogram is performed with contrast to opacify the left ventricle and to improve the deliniation of the left ventricle endocardial borders. Reason for Poor Study: poor echocardiographic windows Summary 1. Technically difficult study with limited views. 2. Left ventricular chamber dimension is normal. 3. Left ventricular systolic function is normal, estimated at 60-65%. 4. There is mildly increased left ventricular wall thickness. 5. The left ventricular diastolic function is grade I diastolic dysfunction. 6. Right ventricular chamber dimension is normal. 7. Right ventricular systolic function is normal. 8. No significant valvular disease. Left Ventricle Left ventricular chamber dimension is normal. Left ventricular systolic function is normal, estimated at 60-65%. There is mildly increased left ventricular wall thickness. The left ventricular diastolic function is grade I diastolic dysfunction. Right Ventricle Right ventricular chamber dimension is normal. Right ventricular systolic function is normal. Left Atria Left atrial chamber dimension is normal. Right Atria Right atrial chamber dimension is normal. Atrial Septum Intact interatrial septum visualized by color flow imaging. Aortic Valve The aortic valve is not well visualized. There is no aortic valve stenosis. There is no aortic valve regurgitation. Pulmonic Valve The pulmonic valve is not well visualized. Mitral Valve There is trace mitral valve regurgitation. Tricuspid Valve There is trace tricuspid valve regurgitation. Pericardium/Pleural The pericardium appears epicardial fat pad. There is no pericardial effusion. Inferior Vena Cava Inferior vena cava is not well visualized. Aorta The aortic root size at the sinus of Valsalva is normal. Left Ventricular Outflow Tract Name Value Normal LVOT 2D LVOT Diameter 2.10 cm LVOT Doppler LVOT Peak Gradient 3 mmHg LVOT Mean Gradient 2 mmHg LVOT VTI 18.04 cm LVOT VTI/AV VTI Ratio 0.68 LVOT Stroke Volume 62.65 ml LVOT CO 5.09 l/min LVOT CI 1.82 L/min/m2 Mitral Valve Name Value Normal MV Doppler MV Decel [place] 244.67 cm/s2 MV PHT
--- NOTE | 2023-12-30 13:52 | ECG_ITS ---
Test Date: 2023-12-30 13:46:47 Measurements Intervals [place] Rate: 81 P: 0 DE: 0 QRS: 25 QRSD: 98 T: -2 QT: 367 QTc: 428 Interpretive Statements SINUS RHYTHM DELAYED PRECORDIAL R/S TRANSITION BORDERLINE ST-T WAVE ABNORMALITY- INFERIOR LEADS BORDERLINE ECG Compared to ECG 12/25/2023 23:32:17 NO SIGNIFICANT CHANGE Electronically Signed On 12-30-2023 15:01:05 CDT by Justin Jones D.O.
--- NOTE | 2023-12-30 14:37 | PM.CNCAR ---
Assessment and Plan Assessment and plan (1) Pulmonary embolism: Qualifiers: Acute cor pulmonale presence: without acute cor pulmonale Chronicity: acute Pulmonary embolism type: saddle Qualified Code(s): I26.92 - Saddle embolus of pulmonary artery without acute cor pulmonale Code(s): I26.99 - Other pulmonary embolism without acute cor pulmonale Status: Acute Assessment and Plan: He has a pulmonary embolism with large clot burden including saddle PE. Despite large clot burden he did not have any right heart strain evident on initial CT, he is hemodynamically stable, and saturating well on room air. He has been on heparin since 12/23. Because he is stable, I do not think he is a candidate for thrombectomy unless his echo shows evidence of significant right heart strain. We will await the results of echocardiogram and if there is no right heart strain the heparin can be discontinued and shifted to a DOAC. (2) Hypertension: Qualifiers: Hypertension type: primary hypertension Qualified Code(s): I10 - Essential (primary) hypertension Code(s): I10 - Essential (primary) hypertension Status: Acute Assessment and Plan: Blood pressure is stable. (3) Syncope: Qualifiers: Syncope type: unspecified Qualified Code(s): R55 - Syncope and collapse Code(s): R55 - Syncope and collapse Status: Acute Assessment and Plan: Most likely related to hypoxia History of Present Illness History of Present Illness Consult date/time: 12/30/23 14:37 Requesting physician: Marc Aguero MD Consult reason: Other (Saddle PE) Reason For Visit: Pumonary embolism Narrative: Jaylen Epstein is a 73 year old male with hypertension and type II diabetes. He is hospitalized now because of shortness of breath and has been found to have a saddle PE. He reports noticing shortness of breath starting about a month ago which progressively got worse. He had a syncopal event at home and came to the hospital for evaluation following that event. He was placed on the transfer list to [facility] because of hi large clot burden. However, he has not yet been transferred. He reports that he thinks his shortness of breath has gotten slightly worse since he has been admitted but can't be sure since he doesn't ambulate much. He denies any chest pain, shortness of breath at rest, palpitations. He is sitting comfortably in the chair at the time of my evaluation and has no active complaints. Review of Systems Review of Systems: All systems reviewed & are unremarkable except as noted in HPI and below PMFSH Past Medical History Medical History Bilateral carotid bruits Borderline hypothyroidism BPV (benign positional vertigo) Gall bladder disease GERD (gastroesophageal reflux disease) Hyperlipidemia Hypertension Lumbar stenosis Morbid obesity with BMI of 50.0-59.9, adult Peripheral polyneuropathy Sciatica Severe obstructive sleep apnea Type 2 diabetes mellitus with hyperglycemia Vitamin D deficiency Surgical History Surgical History History of cholecystectomy History of gastric bypass w/reversal History of tonsillectomy Family History Family History Father Acute myocardial infarction Grandparent Acute myocardial infarction Mother Acute myocardial infarction Other Diabetes mellitus Family history of arthritis Family history of cardiovascular disease Hypertension Social History Social History Smoking status: Never smoker Second hand tobacco smoke exposure: No Alcohol intake: never Alcohol use details: Rarely. Substance use: never Substance use type: does not use Do You Feel Safe in your Home?: Yes Lack of Transportation: No
[2023-12-30 14:55] LABS: NT Pro B Type Natriuretic Pept 48 pg/mL (19.9-100); Troponin I < 0.012 ng/mL (0.000-0.034)
[2023-12-30] MEDS: PERFLUTREN LIPID MICROSPHERES 1.5 ML VIAL DILUTED TO 10 ML TOTAL VOLUME IV PUSH (15:25)
[2023-12-30 16:20] LABS: Glucose Point of Care 151 mg/dl (65-105)
--- NOTE | 2023-12-30 16:33 | IVDEFINITY ---
Prior to administration of IV Definity the patient was educated on the risks and benefits of the imaging enhancing agent including potential adverse side effects. The patient verbalized understanding. Allergies were verified. No exclusion criteria were identified and at least one of the following inclusion criteria were met: 1) physician request, 2) patient technically difficult to image (per the [place] [employer] Echocardi[employer] guidelines of two or more segments not discernable within the apical view), or 3) questionable left ventricular function. ?
--- NOTE | 2023-12-30 16:53 | PM.IMPN ---
Progress Note: A&P Assessment and Plan (1) Pulmonary embolism: Qualifiers: Acute cor pulmonale presence: without acute cor pulmonale Chronicity: acute Pulmonary embolism type: saddle Qualified Code(s): I26.92 - Saddle embolus of pulmonary artery without acute cor pulmonale Code(s): I26.99 - Other pulmonary embolism without acute cor pulmonale Status: Acute Assessment and Plan: - Chest CTA: 1. Pulmonary embolism with large clot burden including a saddle embolism which extends into each of the lobes of both lungs. There is however no evident right heart strain. 2. Regions of groundglass opacity in the left upper and left lower lobes which could represent pulmonary infarcts or pneumonia. US LE : IMPRESSION: 1. Deep venous thrombosis at the below the right knee in the popliteal, gastrocnemius, posterior tibial and peroneal veins. 2. No evident deep venous thrombosis in the left lower limb. - reviewed CTA, opacities more likely pulmonary hemorrhage. Patient reporting chest congestion and cough, otherwise no systemic symptoms (i.e. fever, chills, body aches). Continue to follow WBC, low threshold for starting ABX if concerns for pneumonia increase. - add US of BLE - started on heparin gtt - patient educated on red flag symptoms to alert the staff to - suspect clot development secondary to recent change in activity secondary to pain from sciatica - awaiting transfer to [facility] - admission to IMU w/telemetry for close monitoring (2) Syncope: Qualifiers: Syncope type: unspecified Qualified Code(s): R55 - Syncope and collapse Code(s): R55 - Syncope and collapse Status: Acute Assessment and Plan: - Head CT: Mild scattered white matter hypoattenuation consistent with chronic small vessel ischemic disease. No acute intracranial process. - CXR: No acute cardiopulmonary disease. - troponin: 0.053 -> 0.044 -> <0.012 - EKG, initial: Sinus tachycardia, delayed precordial RS transition, minimal Q-waves inferior leads, baseline wander. No previous available for comparison. - EKG, repeat (1): Heart rate decreased when compared to EKG done earlier today. - EKG, repeat (2): No significant changes when compared to EKG done earlier today. - suspect syncope secondary to PE due to likely combination of potential hypoxia and sudden drop in cardiac output/cerebral blood flow. No active chest pain. - telemetry monitoring (3) Type 2 diabetes mellitus with hyperglycemia: Qualifiers: Diabetes mellitus ferry terminal agent insulin use: without retirement use Qualified Code(s): E11.65 - Type 2 diabetes mellitus with hyperglycemia Code(s): E11.65 - Type 2 diabetes mellitus with hyperglycemia Status: Acute Assessment and Plan: - hypoglycemia protocol - POC blood glucose ACHS - home medication: Farxiga, Glimepiride, Actos. Hold Ozempic. - correct regimen ordered - high dose TIDWM based off PMI - A1C 6.9% on 09/17/2023, update (4) Hypertension: Qualifiers: Hypertension type: primary hypertension Qualified Code(s): I10 - Essential (primary) hypertension Code(s): I10 - Essential (primary) hypertension Status: Acute Assessment and Plan: - continue home medications: Losartan, metoprolol - monitor (5) Severe obstructive sleep apnea: Code(s): G47.33 - Obstructive sleep apnea (adult) (pediatric) Status: Acute Assessment and Plan: - continue home CPAP Plan Diet: Heart healthy GI Prophylaxis: Not currently indicated DVT Prophylaxis: Heparin Lines: Peripheral Code Status: Full code Subjective Date/time seen: 12/30/23 16:53 Interval history: Patient is still on the waiting list to be transferred to [facility]. WIll try [facility] transfer today Review of Systems Review of Systems: All systems reviewed & are unremarkable except as noted in HPI and below Exam Narrative: General: alert and
[2023-12-30 20:29] LABS: Glucose Point of Care 156 mg/dl (65-105)
[2023-12-31] VITALS: PULSE 80; O2SAT 100
[2023-12-31] MEDS: HEPARIN SOD/D5W 100 UNITS/ML 25,000 UNITS/250 ML BAG 22 UNITS IV CONT (00:12)
[2023-12-31 00:29] VITALS: BP 122/62; PULSE 82; RESP 16; TEMP 37; O2SAT 100
[2023-12-31 02:00] VITALS: PULSE 85
--- NOTE | 2023-12-31 13:48 | PM.TDS ---
Transfer Discharge Sum: Prov Provider Date of admission: 12/27/23 14:07 Primary care physician: Nelida Roche MD Admitting clinician: Nickolas Freeman MD Consults: 12/30/23 Consult to Physician Routine Comment: Consulting Provider: Oanh Angel Reason for consultation: Saddle PE Has provider been notified: Yes DS: Admitting Diagnosis Discharge Date 12/31/23 Admitting Diagnosis 12/31/23 Transfer Discharge Sum: Med Medications Active and Home Medications: Home Medications diphenhydramine HCl 50 mg capsule 50 mg PO HS PRN Insomnia 02/22/19 [History Confirmed 12/27/23] kxwjznqf-qzu-ikeqd acid 0.4 mg-lycopene 300 mcg-lutein 250 mcg tablet (Centrum Silver) 1 tablet PO DAILY 02/22/19 [History Confirmed 12/27/23] omeprazole 20 mg capsule,delayed release 20 mg PO DAILY 02/22/19 [History Confirmed 12/27/23] blood sugar diagnostic (Contour Next Test Strips) #100 ea 11/21/22 [Rx Confirmed 12/27/23] metoprolol succinate 100 mg tablet,extended release 24 hr See Rx Instructions .Route .COMPLEX #135 tabs 03/24/23 [Rx Confirmed 12/27/23] losartan 100 mg tablet 100 mg PO DAILY #90 tabs 04/01/23 [Rx Confirmed 12/27/23] hydrochlorothiazide 12.5 mg tablet 12.5 mg PO DAILY #30 tabs 07/06/23 [Rx Confirmed 12/27/23] dapagliflozin propanediol 10 mg tablet (Farxiga) 10 mg PO QAM #90 tabs 08/11/23 [Rx Confirmed 12/27/23] glimepiride 1 mg tablet 1 mg PO QAM #1 tablet 09/16/23 [Rx Confirmed 12/27/23] fenofibrate nanocrystallized 145 mg tablet 145 mg PO DAILY #90 tabs 10/03/23 [Rx Confirmed 12/27/23] pioglitazone 30 mg tablet 30 mg PO DAILY #90 tabs 10/17/23 [Rx Confirmed 12/27/23] semaglutide 2 mg/dose (8 mg/3 mL) subcutaneous pen injector (Ozempic) 2 mg (0.75 mL) subcut WEEKLY #3 mL 11/25/23 [Rx Confirmed 12/27/23] icosapent ethyl 1 gram capsule 2 g PO BIDWM 12/27/23 [History Confirmed 12/27/23] Transfer Discharge Sum: Hosp Hospital Course Hospital course: 73 y/o M presents here with shortness of breath and syncope with PMH of HTN, HLD, DM2, severe MARSHA, The patient presents here from home for further evaluation of shortness of breath and syncope. First noted exertional shortness of breath within the last month, was unable to walk at a car show November 29. Shortness of breath dissipates with rest. Reports accompanying cough with metallic taste (no blood) and feels upper chest congestion that started today. Denies accompanying fever, chills, or body aches. The patient reports he began feeling severely short of breath last night after climbing a flight of stairs to his bedroom. He reports he leaned over his bed in attempts to rest and catch his breath. While attempting to catch his breath the patient had a syncopal episode. In addition to shortness of breath, he reports no other symptoms prior to syncope. Denied chest pain, dizziness, palpitations or diaphoresis prior. Reports he was unconscious for approximately 20 minutes. After the syncopal episode the patient reported nausea, diaphoresis, and dizziness. Denies head strike, pain, or injury from syncopal episode Afterwards patient was able to put his CPAP back on and slept the rest of the night. Patient reports when he woke the next morning he was able to do the stairs without shortness of breath. Patient is not on a blood thinner. He reports he has been more sedentary over the last 2 years due to right-sided sciatica. However he reports since spring of this year he has not been able to tolerate standing due to numbness in the RLE which has led to further immobility. Patient reports he has been taking Tylenol and limited dose of Gabapentin (states more than one dose makes him dizzy). Patient reports travel to [facility] (3-4 hr car ride) but they stopped once an hour. Denies recent surgeries or malignancy. Initial VS at presentation: 97.7? F, HR 115, RR 20, 160/109, and 94% on RA. ED workup showed: No leukocytosis, hemoglobin 14.1, INR 1.0, sodium 136, creatinine 1.2 and GFR 59, glucose
== END 2023-12-31 02:05 | disposition short-term general hospital (02) | DRG 314 ==
LOC: ANHED 12-27 09:30 → ANHIMU 12-27 10:00
PROVIDERS: Emergency Medicine; General Practice; Student in an Organized Health Care Education/Training Program; Admitting Provider Internal Medicine; Emergency Provider Physician Assistant; PCP Family Medicine; Visit Provider Internal Medicine
DX: R09.89 Other specified symptoms and signs involving the circulatory and respiratory systems (principal); I26.92 Saddle embolus of pulmonary artery without acute cor pulmonale; Z68.42 Body mass index [BMI] 45.0-49.9, adult; I82.431 Acute embolism and thrombosis of right popliteal vein; I82.441 Acute embolism and thrombosis of right tibial vein; I82.451 Acute embolism and thrombosis of right peroneal vein; I82.461 Acute embolism and thrombosis of right calf muscular vein; I10 Essential (primary) hypertension; E11.42 Type 2 diabetes mellitus with diabetic polyneuropathy; E11.65 Type 2 diabetes mellitus with hyperglycemia; E55.9 Vitamin D deficiency, unspecified; E78.5 Hyperlipidemia, unspecified; E66.01 Morbid (severe) obesity due to excess calories; K21.9 Gastro-esophageal reflux disease without esophagitis; H81.10 Benign paroxysmal vertigo, unspecified ear; G47.33 Obstructive sleep apnea (adult) (pediatric); M54.31 Sciatica, right side; M48.061 Spinal stenosis, lumbar region without neurogenic claudication; Z87.891 Personal history of nicotine dependence
CPT/HCPCS: 36415; 70450; 71045; 71275; 80048; 80053; 82948; 83036; 83880; 84484; 85025; 85027; 85380; 85610; 85730; 93005; 93970; 94002; 96365; 99285; A9270; C8929; G0378; J1644; Q9957; Q9967

== ENCOUNTER 2024-05-31 10:35 | Outpatient (CLI) | payer MEDICARE, BC, SELFPAY ==
--- NOTE | ~2024-05-31 | CT_ITS ---
EXAMINATION: CTA chest PE protocol DATE: 05/31/2024 11:15 INDICATION: Reevaluation of subtle pulmonary embolism. TECHNIQUE: Computed tomography (CT) pulmonary angiogram of the chest was performed with 100 mL Omnipa que-350 intravenous contrast. Additional 3D reconstructions utilizing coronal maximum intensity proje ction (MIP) were performed. Automated exposure control and iterative reconstruction technique were em ployed. The dose-length product was 767.47 mGy-cm. COMPARISON: 12/24/23 FINDINGS: Interval resolution of the prior sagittal pulmonary embolism. No residual pulmonary arterial filling defects identified. Minimal dependent atelectasis in the bilateral lower lobes. No suspicious pulmona ry nodules, pneumonia, pulmonary edema or pleural effusion. Heart size is normal. Atherosclerotic cor onary artery calcific lesion. No pericardial effusion. Thoracic aorta is normal caliber with no disse ction. No pathologically enlarged thoracic lymphadenopathy. Small sliding-type hiatal hernia. Bariatr ic surgery with suture line extending across the proximal body of the stomach. Multiple splenic calci fications consistent with old granulomatous disease. Gallbladder is nonvisualized and likely surgical ly absent. Mild to moderate thoracic spondylosis with bridging osteophytes at multiple levels consist ent with diffuse idiopathic skeletal hyperostosis (DISH). Chronic mild anterior wedging at T12. IMPRESSION: 1. No residual pulmonary embolism or other acute cardiopulmonary disease. 2. Small sliding-type hiatal hernia. Reviewed, dictated and finalized at location A. CIENCY CLERK
[2024-05-31 11:00] LABS: Estimated Glomerular Filt Rate 43
== END 2024-05-31 10:36 | disposition home or self-care (01) ==
LOC: MICIMG 10:36
PROVIDERS: PCP Family Medicine; Visit Provider Family Medicine
DX: I26.92 Saddle embolus of pulmonary artery without acute cor pulmonale (principal); K44.9 Diaphragmatic hernia without obstruction or gangrene
CPT/HCPCS: 71275; Q9967

== ENCOUNTER 2024-09-02 10:28 | Outpatient (CLI) | payer MEDICARE, BC, SELFPAY ==
--- NOTE | ~2024-09-02 | US_ITS ---
RIGHT LOWER EXTREMITY VENOUS ULTRASOUND Ordering provider: Noe Garsia MD History: . Acute DVT . Comparison: A FINDINGS: --COMMON FEMORAL: Patent and free of thrombus. Normal compressibility, phasic flow and augmentation. --PROXIMAL SUPERFICIAL FEMORAL: Patent and free of thrombus. Normal compressibility, phasic flow and augmentation. --DISTAL SUPERFICIAL FEMORAL: Patent and free of thrombus. Normal compressibility, phasic flow and au gmentation. --POPLITEAL: Patent and free of thrombus. Normal compressibility, phasic flow and augmentation. --POSTERIOR TIBIAL: Patent and free of thrombus. Normal compressibility, phasic flow and augmentation . IMPRESSION: Negative right lower extremity venous US. No deep vein thrombosis. Reviewed, dictated and finalized at location A.
--- OUTSIDE RECORDS SUMMARY | 2024-09-02 10:38 | XMS_ITS | Clinical Summary ---
Author Organization [facility] Medical Office Building [address] Address [address] [place] [address] Care Team Providers Care Gopherman Name Role Phone Lamar Pollard NP Primary Care Provider [phone] Allergies Active Allergy Reactions Criticality Noted Date Comments Metformin Diarrhea High 05/18/2024 Apnlxqq-Eld-Vep Reductase Inhibitors Muscle pain Medium 02/02/2019 Medications Contour Next Test Strips strip USE TO CHECK BLOOD SUGAR ONCE DAILY 05/30/19 25 Active apixaban (ELIQUIS) 5 mg tabletIndications:Hi story of pulmonary embolism,History of DVT (deep vein thrombosis) Take 1 tablet (5 mg total) by mouth 2 (two) times a day 60 tablet 3 07/23/19 25 Active hydroCHLOROthiazide 12.5 mg tabletIndications:Hy pertension associated with diabetes (HCC) Take 1 tablet (12.5 mg total) by mouth daily 90 tablet 3 07/23/19 25 026 Active fenofibrate nanocrystallized (TRICOR) 145 mg tabletIndications:Hy perlipidemia associated with type 2 diabetes mellitus (HCC) Take 1 tablet (145 mg total) by mouth daily 90 tablet 3 07/23/19 25 026 Active losartan (COZAAR) 100 mg tabletIndications:Hy pertension associated with diabetes (HCC) Take 1 tablet (100 mg total) by mouth daily 90 tablet 3 07/23/19 25 Active metoprolol XL (TOPROL-XL) 100 mg 24 hr tabletIndications:Hy pertension associated with diabetes (HCC) Take 1.5 tablets (150 mg total) by mouth daily 135 tablet 3 07/23/19 25 Active omega-3 fatty acids (LOVAZA) 1 gram capsuleIndications:H yperlipidemia associated with type 2 diabetes mellitus ([facility]),Statin intolerance Take 2 capsules (2 g total) by mouth 2 (two) times a day 360 capsule 3 07/23/19 25 026 Active Farxiga 10 mg tabletIndications:Ty pe 2 diabetes mellitus with hyperglycemia, without long-term current use of insulin ([facility]) Take 1 tablet (10 mg total) by mouth daily 90 tablet 3 08/10/19 25 026 Active semaglutide (OZEMPIC) 2 mg/dose (8 mg/3 mL) pen injector injectionIndications :Type 2 diabetes mellitus with hyperglycemia, without long-term current use of insulin ([facility]) Inject 2 mg under the skin once a week 9 mL 3 08/10/19 25 026 Active semaglutide (OZEMPIC) 2 mg/dose (8 mg/3 mL) pen injector injectionIndications :Type 2 diabetes mellitus with hyperglycemia, without long-term current use of insulin ([facility]) Inject 2 mg under the skin once a week 9 mL 3 01/29/20 24 025 Discontin ued(Reord er) Farxiga 10 mg tabletIndications:Ty pe 2 diabetes mellitus with hyperglycemia, without long-term current use of insulin ([facility]) Take 1 tablet (10 mg total) by mouth daily 90 tablet 3 01/29/20 24 025 Discontin ued(Reord er) Active Problems Problem Noted Date Diagnosed Date History of DVT (deep vein thrombosis) 07/23/2024 Assessment & Plan (07/23/2024 5:21 PM CDT): Orders: apixaban (ELIQUIS) 5 mg tablet; Take 1 tablet (5 mg total) by mouth 2 (two) times a day Stage 3a chronic kidney disease 07/22/2024 Assessment & Plan (07/23/2024 5:21 PM CDT): Stable. Chronic. We will continue to monitor. 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 A1c increased from 6.1% 12/31/23 to 6.8%. relates that he's been drinking sugar sweetened lemonade (will stop). Current medications: Farxiga 10mg daily Ozempic 2mg weekly UTD on DM eye exam (01/19/24 no DMR) UTD on labs. Discussed with Jaylen Epstein: Strive for regular exercise (30min most days) and diet (get at least 4-5 servings of fruit and veggies daily, avoid processed foods, increase lean protein intake and decrease carb portions as well as fruit juices, regular soda & desserts). Watch carbs and simple sugars. Check the blood sugar: daily. Check the feet daily for skin breakdown and infection. Assessment & Plan (01/29/2024 9:00 AM CDT): Chronic, overall well controlled Hemoglobin A1c 6.1% Advised to stop pioglitazone Recommend to continue current dose of Ozempic 2 mg subQ weekly and Farxiga 10 mg oral daily Counseled on diet and exercise Up-to-date with eye exam we will try to obtain patient's recent eye exam copy Check urine microalbumin today Daily foot care Follow-up in 3 months Hypertension associated with diabetes 01/29/2024 Assessment & Plan (07/23/2024 5:21 PM CDT): Orders: hydroCHLOROthiazide 12.5 mg tablet; Take 1 tablet (12.5 mg total) by mouth daily losartan (COZAAR) 100 mg tablet; Take 1 tablet (100 mg total) by mouth daily metoprolol XL (TOPROL-XL) 100 mg 24 hr tablet; Take 1.5 tablets (150 mg total) by mouth daily Assessment & Plan (05/18/2024 3:02 PM [employer] SAL[employer] EXECUTIVE): Controlled on current losartan 100mg daily, metoprolol XL 150mg daily, HCTZ 12.5mg daily. Assessment & Plan (01/29/2024 8:59 AM CDT): Chronic, well controlled Continue losartan, hydrochlorothiazide and metoprolol Hyperlipidemia associated with type 2 diabetes ruth teoshant 01/29/2024 Assessment & Plan (07/23/2024 5:21 PM CDT): Orders: fenofibrate nanocrystallized (TRICOR) 145 mg tablet; Take 1 tablet (145 mg total) by mouth daily omega-3 fatty acids (LOVAZA) 1 gram capsule; Take 2 capsules (2 g total) by mouth 2 (two) times a day Assessment & Plan (05/18/2024 2:37 PM [employer] SAL[employer] EXECUTIVE): Chronic problem. Currently taking fenofibrate 145mg daily & lovasa 2gm bid. Reports statin intolerance. Assessment & Plan (01/29/2024 8:59 AM CDT): Started intolerant Continue [place] 3 fatty acids and fenofibrate Morbid obesity with BMI of 40.0-44.9, adult 01/12 Assessment & Plan (07/23/2024 5:21 PM CDT): Discussed the patient's BMI. The BMI is above average. BMI management plan is completed. BMI Follow-up includes: nutrition counseling, exercise counseling and education provided. Assessment & Plan (01/29/2024 8:59 AM CDT): Chronic, above goal , difficulty to lose weight Counseled on stress management and diet and exercise Statin intolerance 01/29/2024 Assessment & Plan (07/23/2024 5:21 PM CDT): Orders: omega-3 fatty acids (LOVAZA) 1 gram capsule; Take 2 capsules (2 g total) by mouth 2 (two) times a day Assessment & Plan (05/18/2024 3:05 PM [employer] EXECUTIVE): Chronic problem. Unable to tolerate statins. Currently taking Fenofibrate 145mg & Lovaza 2gm bid. Hearing loss 02/02/2019 Assessment & Plan (02/02/2019 11:35 AM CDT): Hearing test and VNG Obtain previous work up from [facility] Have eye examination Gastroesophageal reflux disease without esophagi tis 02/02/2019 Assessment & Plan (07/23/2024 5:21 PM CDT): Assessment & Plan (02/02/2019 11:35 AM CDT): Continue Prilosec and start Pepcid at bedtime. LPR discussed and Handout provided Resolved Problems Problem Noted Date Diagnosed Date Resolved Date Pulmonary embolism, unspecif ied chronicity, unspecified pulmonary embolism type, unspecified whether acute cor pulmonale present 12/31/2023 07/22/2024 Dizziness and giddiness 02/02/2019 04 Assessment & Plan (02/02/2019 11:36 AM CDT): Hearing test and VNG Obtain previous work up from [facility] Have eye examination Consider repeating Carotid Encounters Date Type Department Care Team Description 08/27/2024 Results Follow-Up [facility] Primary Care at [address] [phone] Lamar Pollard NP XR Spine Thoracic 3 Vw 08/26/2024 3:15 PM CDT Ancillary Procedure [facility] Imaging at [address] [phone] Thoracic back pain, unspecified back pain laterality, unspecified chronicity 08/26/2024 2:30 PM CDT Office Visit [facility] at [address] [phone] Lamar Pollard NP Thoracic back pain, unspecified back pain laterality, unspecified chronicity (Primary Dx) 08/10/2024 Results [place] [facility] [facility] [address] [address] [place] [phone] Sanaz Nolen MD Comprehensive metabolic panel, Albumin Creatinine Ratio, Urine, Lipid panel, eGFR 08/09/2024 1:30 PM CDT - 08/09/2024 11:59 PM CDT Hospital Encounter [facility] [id number] [place] [id number] Type 2 diabetes mellitus with hyperglycemia, without long-term current use of insulin (HCC); Hypertension associated with diabetes (HCC); Hyperlipidemia associated with type 2 diabetes mellitus (HCC); Stage 3a chronic kidney disease (HCC) Discharge Disposition: Discharge to home or self care 08/09/2024 1:30 PM CDT Lab [facility] Outpatient Lab at [address] [phone] Type 2 diabetes mellitus with hyperglycemia, without long-term current use of insulin (HCC) (Primary Dx) 08/09/2024 1:15 PM CDT Office Visit [facility] Diabetes [facility] Endocrinology [address] [place] [phone] Sanaz Nolen MD Type 2 diabetes mellitus with hyperglycemia, without long-term current use of insulin (HCC) (Primary Dx); Hypertension associated with diabetes (HCC); Hyperlipidemia associated with type 2 diabetes mellitus (HCC); Stage 3a chronic kidney disease (HCC); Morbid obesity with BMI of 40.0-44.9, adult (HCC) 07/30/2024 Telephone [facility] Primary [facility] at [address] [phone] Lamar Pollard NP 07/28/2024 Orders Only [facility] Neurosurgery [address] [facility] Medical Office [address] [place] [address] Lucio Larson PA Spinal stenosis, lumbar region without neurogenic claudication (Primary Dx) 07/22/2024 9:30 AM CDT Office Visit [facility] Primary Care at [address] [phone] Lamar Pollard NP Morbid obesity with BMI of 40.0-44.9, adult (HCC) (Primary Dx); Stage 3a chronic kidney disease (HCC); History of pulmonary embolism; Type 2 diabetes mellitus with hyperglycemia, without long-term current use of insulin (HCC); Hyperlipidemia associated with type 2 diabetes mellitus (HCC); Hypertension associated with diabetes (HCC); Gastroesophageal reflux disease without esophagitis; Statin intolerance; History of DVT (deep vein thrombosis) from Last 3 Months Immunizations Immunization Administration Dates Next Due Pneumococcal Polysaccharide PPV23 12/10/2016 Tdap 12/12/2014 Surgical History Surgery Date Site/Laterality Comments CHOLECYSTECTOMY 80's or 1985 GASTRIC BYPASS 1983 and reversal 1988 Medical History Medical History Date Comments Dizziness GERD (gastroesophageal reflux disease) Sleep apnea Tinnitus Diabetes mellitus (HCC) Hypertension Hyperlipidemia Dizziness and giddiness 02/02/2019 Pulmonary embolism, unspecif ied chronicity, unspecified pulmonary embolism type, unspecified whether acute cor pulmonale present ([facility]) 12/31/2023 Family History Medical History Relation Name Comments Heart disease Father Hypertension Father Diabetes Mother Sleep apnea Sister Relation Name Status Comments Father Mother Sister Social History Tobacco Use Types Packs/Day Years Used Date Smoking Tobacco: Never Passive Smoke Exposure: Never Smokeless Tobacco: Never Tobacco Cessation:Counseling Given: Not Answered Alcohol Use Standard Drinks/Week Comments Yes 0 (1 standard drink = 0.6 oz pur e alcohol) [employer]ODIL Utilities Answer Date Recorded In the past 12 months has [employer], oil, or water [employer] threatened to shut off services in your home? No 01/02/2024 Social Connection and Isolat ion Panel [NHANES] Answer Date Recorded In a typical week, how many times do you talk on the phone with family, friends, or neighbors? More than three times a week 01/02/2024 How often do you get togethe r with friends or relatives? More than three times a week 01/02/2024 How often do you attend [facility] or yazidi services? 1 to 4 times per year 01/02/2024 Do you belong to any clubs o r organizations such as denominational groups, unions, fraternal or athletic groups, or school groups? No 01/02/2024 How often do you attend meet ings of the clubs or organizations you belong to? Never 01/02/2024 Are you , , di vorced, , never , or living with a partner? 01/02/2024 AUDIT-C Answer Date Recorded Q1: How often do you have a drink containing alc ohol? 2-4 times a month 07/22/2024 Q2: How many drinks containi ng alcohol do you have on a typical day when you are drinking? 1 or 2 07/22/2024 Q3: How often do you have si x or more drinks on one occasion? Never 07/22/2024 Overall Financial Resource Strain (CARDIA) Answe r Date Recorded How hard is it for you to pa y for the very basics like food, housing, medical care, and heating? Not very hard 01/02/2024 PHQ-2 Answer Date Recorded PHQ-2 Total Score (If total score is 3 or more points, staff should administer the PHQ-9) 0 07/22/2024 Hunger Vital Sign Answer Date Recorded Within the past 12 months, y ou worried that your food would run out before you got the money to buy more. Never true 01/02/20 24 Within the past 12 months, t he food you bought just didn't last and you didn't have money to get more. Never true 01/02/2024 PRAPARE - Transportation Answer Date Re corded In the past 12 months, has l ack of transportation kept you from medical appointments or from getting medications? No 12/14 In the past 12 months, has l ack of transportation kept you from meetings, work, or from getting things needed for daily living? No 01/02/2024 Housing Stability Vital Sign Answer Adolfo e Recorded In the last 12 months, was t here a time when you were not able to pay the mortgage or rent on time? No 01/02/2024 In the past 12 months, how m any times have you moved where you were living? 1 01/02/2024 At any time in the past 12 m [facility], were you homeless or living in a usp (including now)? No 01/02/2024 Personal Safety Answer Date Recorded Have you ever been in or are you currently in a harmful physical or emotional relationship or is someone making you feel afraid or unsafe? 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 Gender Identity Not on file Sexual Orientation Not on file Obstetrics History Last Filed Vital Signs Vital Sign Reading Time Taken Comments Blood Pressure 130/78 08/26/2024 2:29 PM CDT Pulse 85 08/26/2024 2:29 PM CDT Temperature 36.4 C (97.5 F) 08/26/2024 2:29 PM CDT Respiratory Rate 16 08/26/2024 2:29 PM CDT Oxygen Saturation 98% 08/26/2024 2:29 PM CDT Inhaled Oxygen Concentration - - Weight 135.2 kg (298 lb) 08/26/2024 2:29 PM CDT Height 177.8 cm (5' 10 ) 08/26/2024 2:29 PM CDT Body Mass Index 42.76 08/26/2024 2:29 PM CDT Plan of Treatment Health Maintenance Due Date Last Done Comments Hepatitis C Screening 1950 Hepatitis B Screening 1968 Zoster Vaccine (1 of 2) 2000 Well Visit 65+ 07/14/2015 Pneumococcal vaccine 65+ (2 of 2 - PCV) 12/10/2017 12/10/2016 DTaP/Tdap/Td Vaccine (2 - Td or Tdap) 12/12/2024 12/12/2014 Influenza Vaccine (Season Ended) 2024 Foot Exam 01/28/2025 01/29/2024 Dilated Eye Exam 01/29/2025 01/30/2024 Hemoglobin A1C 02/08/2025 08/09/2024, 02/0 07/2024, 12/31/2023 Colon Cancer Screening-DNA Stool 03/28/2025 03/28/20 22 Depression Screening 07/22/2025 07/22/2024 Fall Risk Assessment 07/22/2025 07/22/2024, 01/01/20 24 Albumin Creatinine Ratio, Urine 08/09/2025 , 01/29/2024 Lipid Panel 08/09/2025 08/09/2024, 12/31/2023 eGFR 08/09/2025 08/09/2024, 12/13, 12/31/2023, Additional history exists Colon Cancer Screening-FIT Discontinued 03/28/2022 Procedures Procedure Name Priority Date/Time Associated Diagnosis Comments XR SPINE THORACIC 3 VIEWS Schedule Routine, Read Routine (OP Routine) 08/26/2024 3:06 PM CDT Thoracic back pain, unspecified back pain laterality, unspecified chronicity EGFR Routine 08/09/2024 1:30 PM CDT Type 2 diabetes mellitus with hyperglycemia, without long-term current use of insulin (HCC) Hypertension associated with diabetes (HCC) Hyperlipidemia associated with type 2 diabetes mellitus (HCC) Stage 3a chronic kidney disease (HCC) LIPID PANEL Routine 08/09/2024 1:30 PM CDT Type 2 diabetes mellitus with hyperglycemia, without long-term current use of insulin (HCC) Hyperlipidemia associated with type 2 diabetes mellitus (HCC) ALBUMIN CREATININE RATIO, URINE Routine 08/09/2024 1:30 PM CDT Type 2 diabetes mellitus with hyperglycemia, without long-term current use of insulin (HCC) Hypertension associated with diabetes (HCC) COMPREHENSIVE METABOLIC PANEL Routine 08/09/2024 1:30 PM CDT Type 2 diabetes mellitus with hyperglycemia, without long-term current use of insulin (HCC) Hypertension associated with diabetes (HCC) Hyperlipidemia associated with type 2 diabetes mellitus (HCC) Stage 3a chronic kidney disease (HCC) POCT HEMOGLOBIN A1C Routine 08/09/2024 1 :12 PM CDT Type 2 diabetes mellitus with hyperglycemia, without long-term current use of insulin (HCC) POCT GLUCOSE Routine 08/09/2024 1:10 PM CDT Type 2 diabetes mellitus with hyperglycemia, without long-term current use of insulin (HCC) HM DIABETES EYE EXAM Routine 01/30/2024 2:59 PM CDT HM DNA STOOL Routine 03/28/2022 from Last 3 Months or Most Recently Relevant to Health Maintenance Results * XR Spine Thoracic 3 Vw (08/26/2024 3:06 PM CDT) Anatomical Region Laterality Modality Spine N/A Digital Radiogra phy 08/26/2024 3:42 PM CDT Narrative 08/26/2024 3:44 PM CDT EXAM DESCRIPTION: XR SPINE THORACIC 3 VIEWS REASON FOR STUDY: Chronic nontraumatic mid back/thoracic spine pain. No provided history of radiculopathy. No provided past medical history. No thoracic spine surgery. TECHNIQUE: 3 radiographic view(s) of the thoracic spine. COMPARISON: Relevant portions of MRI of the lumbar spine without contrast 03/25/2025; scoliosis radiographic series FINDINGS: ALIGNMENT: Alignment and curvature unchanged. VERTEBRAE: No radiographic evidence of acute fracture. Vertebral body heights unchanged. Spondylosis. DISCS: Multilevel variable loss of intervertebral disc height. SOFT TISSUES: No acute abnormality. 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 THIS IS AN ELECTRONICALLY VERIFIED FINAL REPORT 08/26/2024 3:44 PM - Electronically signed by Saroj Hurtado M.D. BECKA T: Report ID: [id number] Reading Location: [place] [address] Procedure Note Saroj Hurtado MD - 08/26/2024 EXAM DESCRIPTION: XR SPINE THORACIC 3 VIEWS REASON FOR STUDY: Chronic nontraumatic mid back/thoracic spine pain. No provided history of radiculopathy. No provided past medical history. No thoracic spine surgery. TECHNIQUE: 3 radiographic view(s) of the thoracic spine. COMPARISON: Relevant portions of MRI of the lumbar spine without contrast 03/25/2025; scoliosis radiographic series FINDINGS: ALIGNMENT: Alignment and curvature unchanged. VERTEBRAE: No radiographic evidence of acute fracture. Vertebral bodyheights unchanged. Spondylosis. DISCS: Multilevel variable loss of intervertebral disc height. SOFT TISSUES: No acute abnormality. IMPRESSION: Spondylosis and degenerative disc disease of the thoracicspine. THIS IS AN ELECTRONICALLY VERIFIED FINAL REPORT 08/26/2024 3:44 PM - Electronically signed by Saroj ServinD. BECKA T: Report ID: [id number] Reading Location: [place] [address] [place] Lamar Pollard SWITCH REPAIRER IMG XR PROCEDURES Final Resul t * (ABNORMAL) eGFR (08/09/2024 1:30 PM CDT) eGFR 59(L) >=60 mL/min/1. 73 m2 Comment: Interpretive Data Reference Interval Normal >/= 90 mL/min/1.73m2 Mildly decreased* 60 - 89 mL/min/1.73m2 Mildly to moderately decreased 45 - 59 mL/min/1.73m2 Moderately to severely decreased 30 - 44 mL/min/1.73m2 Severely decreased 15 - 29 mL/min/1.73m2 Kidney Failure < 15 mL/min/1.73m2 *Relative to young adult level Estimated glomerular filtration rate is determined by the 2020 CKD-EPI equation recommended by the National Kidney Foundation (A Unifying Approach to GFR Estimation: Recommendations of the NKF-ASK Task Force on Reassessing the Inclusion of Race in Diagnosing Kidney Disease, JASN 2020). The CKD-EPI equation should not be used for patients with unstable renal function and has not been validated in children and those over 70. Current interpretive data was last reviewed 2021. Blood 08/09/2024 1:30 PM CDT 08/09/2024 9:56 PM CDT Sanaz Ribera MD LAB BLOOD ORDERABLE S Final Result [facility] [id number] [address] Department [place] [address] * Albumin Creatinine Ratio, Urine (08/09/2024 1:30 PM CDT) Albumin Ur <12.0 mg/L Comment: Interpretive Data No reference range established. Current interpretive data was last revised 2018. Creatinine Ur 161.1 mg/dL [facility] Comment: Interpretive Data No reference range established. Current interpretive data was last revised 2018. Albumin Creatinine Ratio, Ur <7 1 - 29 mg/g [facility] Urine 08/09/2024 1:30 PM CDT 08/09/2024 9:46 PM CDT us Sanaz Ribera MD LAB URINE ORDERABLE S Final Result [facility] [id number] [address] Department [place] [address] * (ABNORMAL) Lipid panel (08/09/2024 1:30 PM CDT) Cholesterol 205(H) 30 - 199 mg/dL Comment: Interpretive Data Ages < or = 19 years Acceptable: <170 mg/dL Borderline high: 170-199 mg/dL High: >or= 200 mg/dL Ages > or = 20 years Desirable: <200 mg/dL Borderline high: 200-239 mg/dL High: >or= 240 mg/dL Literature References: 1. Expert Panel on Integrated Guidelines for Cardiovascular Health and Risk Reduction in Children and Adolescents. Pediatrics 2011;128:S213 2. NCEP Expert Panel. Circulation 2004;110:227 Current Interpretive Data was last revised on 2017. Triglycerides 223(H) <=149 mg/dL [facility] Comment: Interpretive Data Ages < or = 9 years Acceptable: <75 mg/dL Borderline high: 75-99 mg/dL High: >or= 100 mg/dL Ages 10 to 20 years Acceptable: <90 mg/dL Borderline high: 90-129 mg/dL High: >or= 130 mg/dL Ages > or = 20 years Desirable: <150 mg/dL Borderline high: 150-199 mg/dL High: 200-499 mg/dL Very high: >or= 499 mg/dL Literature References: 1. Expert Panel on Integrated Guidelines for Cardiovascular Health and Risk Reduction in Children and Adolescents. Pediatrics 2011;128:S213 2. NCEP Expert Panel. Circulation 2004;110:227 Current Interpretive Data was last revised on 2017. HDL 31(L) >=40 mg/dL [facility] Comment: Interpretive Data Ages < or = 19 years Acceptable: >45 mg/dL Borderline low: 40-45 mg/dL Low: <40 mg/dL Ages > or = 20 years Desirable: >or= 60 mg/dL Low: <40 mg/dL Literature References: 1. Expert Panel on Integrated Guidelines for Cardiovascular Health and Risk Reduction in Children and Adolescents. Pediatrics 2011;128:S213 2. NCEP Expert Panel. Circulation 2004;110:227 Current Interpretive Data was last revised on 2017. LDL, calculated 134(H) <=129 mg/dL [facility] Comment: Interpretive Data Ages < or = 19 years Acceptable: <110 mg/dL Borderline high: 110-129 mg/dL High: >or= 130 mg/dL Ages > or = 20 years Optimal: <100 mg/dL Near optimal: 100-129 mg/dL Borderline high: 130-159 mg/dL High: >160 mg/dL Calculated using the Gautam LDL-C estimating equation. This equation was implemented on 2023. Prior to this date LDL-C was estimated using the Friedewald equation. Literature References: 1. Expert Panel on Integrated Guidelines for Cardiovascular Health and Risk Reduction in Children and Adolescents. Pediatrics 2011;128:S213 2. NCEP Expert Panel. Circulation 2004;110:227 3. Gautam Flores et al. JEAN CARLOS Cardiol. 2019August 12;5(5):540-548. doi: 10.1001/[email or web address].2020.0013 Current Interpretive Data was last revised on 2023. Non-HDL Cholesterol 174 mg/dL [facility] Comment: Interpretive Data Ages < or = 19 years Acceptable: <120 mg/dL Borderline high: 120-144 mg/dL High: >145 mg/dL Ages > or = 20 years When triglycerides are >200 mg/dL, Non-HDL cholesterol is a secondary target of therapy with treatment goals that are 30 mg/dL greater than the LDL cholesterol target. Literature References: 1. Expert Panel on Integrated Guidelines for Cardiovascular Health and Risk Reduction in Children and Adolescents. Pediatrics 2011;128:S213 2. NCEP Expert Panel. Circulation 2004;110:227 Current Interpretive Data was last revised on 2017. Chol/HDL ratio 7 TIFFANY RODGERS Blood 08/09/2024 1:30 PM CDT 08/09/2024 9:46 PM CDT us Sanaz Ribera MD LAB BLOOD ORDERABLE S Final Result TIFFANY [address] [place] [address] * Comprehensive metabolic panel (08/09/2024 1:30 PM CDT) Sodium 139 135 - 145 mmol/L Potassium, pl 4.1 3.3 - 4.9 mmol/L CERNER [facility] Chloride 101 97 - 110 mmol/L [facility] CO2 24 22 - 32 mmol/L [facility] Anion gap 14 2 - 15 mmol/L [facility] BUN 22 6 - 25 mg/dL [facility] Creatinine 1.27 0.80 - 1.30 mg/dL [facility] Glucose 145 70 - 199 mg/dL CERNER [facility] Comment: Interpretive Data Fasting glucose >/= 126 mg/dl is diagnostic for diabetes. Fasting is defined as no caloric intake for at least 8 hours. Fasting glucose between 100 mg/dl to 125 mg/dl is diagnostic of prediabetes. In a patient with classic symptoms of hyperglycemia or hyperglycemic crisis, a random glucose >/= 200 mg/dl is diagnostic for diabetes. In the absence of unequivocal hyperglycemia, results should be confirmed by repeat testing. The classification and Diagnosis of Diabetes Diabetes Care 202; 46: S19-S40. Current interpretive data was last revised 2022. Calcium 9.5 8.5 - 10.3 mg/dL CERNER [facility] Bilirubin, total 0.4 0.1 - 1.2 mg/dL CERNER [facility] Protein, pl 7.5 6.5 - 8.5 g/dL [facility] Albumin 4.2 3.5 - 5.0 g/dL [facility] Alk phos 52 40 - 130 Units/L [facility] ALT 24 7 - 55 Units/L [facility] AST 27 10 - 50 Units/L C[facility]ER [facility] Blood 08/09/2024 1:30 PM CDT 08/09/2024 9:46 PM CDT us Sanaz Ribera MD LAB BLOOD ORDERABLE S Final Result TIFFANY RODGERS [address] [place] [address] * POCT hemoglobin A1c (08/09/2024 1:12 PM CDT) Hemoglobin A1C, POC 6.4 4.0 - 5.6 % Blood 08/09/2024 1:12 PM CDT Sanaz Ribera MD POINT OF CARE TEST ORDERABLES Final Result * POCT glucose (08/09/2024 1:10 PM CDT) Glucose Blood, POC 151 mg/dL Blood 08/09/2024 1:10 PM CDT Sanaz Ribera MD POINT OF CARE TEST ORDERABLES Final Result * DIABETES EYE EXAM (01/30/2024 2:59 PM CDT) Historical Provider HEALTH MAINTENANCE Final Result * HM DNA STOOL (03/28/2022) Scribed Stool DNA - Cologuard Negative 03/28/2022 Historical Provider HEALTH MAINTENANCE Final Result from Last 3 Months or Most Recently Relevant to Health Maintenance Insurance MEDICARE BLUE TRADITIONAL [place] BLUE TRADITIONAL OOS MEDICARE BLUE TRADITIONAL OOS Member Subscriber Plan / Payer (Ef fective 2016-Present) Name:Jaylen Epstein Relation to Subscriber:Self Name:Jaylen Epstein Payer ID:[id number] (NAIC) Type: ALLIANCE Address: [address] [place] [id number] MEDICARE Advance Directives For more information, please contact: [phone] * Full Code (Latest Code Status on File) Date Activated Date Inactivated Comments 12/31/2023 2:57 AM 01/01/2024 5:21 PM Care Teams Gopherman Relationship Specialty Start Date End Date Lamar Pollard NP [address] [place] [address] PCP - General Internal Medicine 07/22/24
--- OUTSIDE RECORDS SUMMARY | 2024-09-02 10:38 | XMS_ITS | Clinical Summary ---
Author Organization [facility] Address [address] [place] [address] Care Team Providers Care Materials Branch Chief Name Role Phone Juliana Bangura MD Primary Care Provider [phone] Source Comments [employer] [facility],non-owned Affiliates and Associated Physician Practices is amultiple site organization consisting of ambulatory clinics and hospital sitesin [place], [place], [place] and [place]. This disclosure is being madepursuant to the Care Everywhere program and may not contain all information available regarding this patient. Last updated 18.AfterSteps Allergies No known active allergies Medications * Be aware that medications may not be up to date on this document. Alwaysverify current medications with the patient. METOPROLOL SUCCINATE ER PO TK 1 T PO QD 3 01/19/2019 Active diclofenac sodium EC (VOLTAREN) 75 MG tablet TK 1 T PO BID 2 01/19/2019 Active TRULICITY 1.5 MG/0.5ML injection INJ 0.5 ML SC Q WEEK 1 02/03/2019 Active famotidine (PEPCID) 40 MG tablet 0 02/02/2019 Active glipiZIDE CR 24hr (GLUCOTROL XL) 10 MG tablet TK 1 T PO QD WITH CARLITO 3 12/28/2018 Active BRANDAN CONTOUR NEXT TEST test strip TEST ONCE DAILY AND NEEDED. MAX 4 TIMES PER DAY 4 09/28/2018 Active losartan (COZAAR) 100 MG tablet TK 1 T PO QD 1 12/28/2018 Active Social History Tobacco Use Types Packs/Day Years Used Date Smoking Tobacco: Never Smokeless Tobacco: Never Alcohol Use Standard Drinks/Week Comments Never 0 (1 standard drink = 0.6 oz pur e alcohol) AUDIT-C Answer Date Recorded Frequency of Alcohol Consumption Never 03/21/2019 Average Number of Drinks Not on file 019 Frequency of Binge Drinking Not on file 11/2018 Sex and Gender Information Value Date Recorded Sex Assigned at Not on file Legal Sex Male 11:40 AM BUSBOY Gender Identity Not on file Sexual Orientation Not on file Last Filed Vital Signs Vital Sign Reading Time Taken Comments Blood Pressure 160/80 03/21/2019 2:32 PM BUSBOY Pulse 90 03/21/2019 2:32 PM BUSBOY Temperature 36.3 C (97.3 F) 03/21/2019 2:32 PM BUSBOY Respiratory Rate 20 03/21/2019 2:32 PM BUSBOY Oxygen Saturation 97% 03/21/2019 2:32 PM BUSBOY Inhaled Oxygen Concentration - - Weight 158.8 kg (350 lb) 03/21/2019 2:32 PM BUSBOY Height 177.8 cm (5' 10 ) 03/21/2019 2:32 PM BUSBOY Body Mass Index 50.22 03/21/2019 2:32 PM BUSBOY Plan of Treatment Health Maintenance Due Date Last Done Comments COLOGUARD (AGES 45-75) - COL ON CA SCREENING 1950 COLON MONITORING 1950 COLONOSCOPY - COLON CA SCREENING 1950 CT COLONOGRAPHY - COLON CA SCREENING 1950 Colorectal Cancer Screening 1950 FIT - COLON CA SCREENING 1950 FLEX SIG - COLON CA SCREENING 1950 LIPID TESTING 1950 HEPATITIS C SCREENING 07/08/1968 DTAP/TDAP/TD VACCINES (1 - Tdap) 1969 PNEUMOCOCCAL VACCINE 50+ (1 of 1 - PCV) 2000 ZOSTER VACCINE (1 of 2) 2000 SCREENING FOR DIABETES 03/21/2019 COVID-19 VACCINE (1 - 2023-2 5 season) 2023 DEPRESSION SCREENING 04/14/2024 INFLUENZA VACCINE (Season Ended) 2024 Respiratory Syncytial Virus (RSV) Vaccine Pt: or over 60 yrs (1 - 1-dose 75+ series) 2025 HEPATITIS B VACCINE Aged Out No longe r eligible based on patient's age to complete this topic HIB VACCINE Aged Out No longer eligi ble based on patient's age to complete this topic HPV VACCINE Aged Out No longer eligi ble based on patient's age to complete this topic MENINGOCOCCAL (Group B) VACC INE SHARED DECISION-MAKING Aged Out No longer eligibl e based on patient's age to complete this topic MENINGOCOCCAL GROUPS A/C/Y/W VACCINE Aged Out No longer eligible b ased on patient's age to complete this topic Insurance MEDICARE Care Teams Materials Branch Chief Relationship Specialty Start Date End Date Juliana Bangura MD PCP - General Family Medicine 03/21/19
--- OUTSIDE RECORDS SUMMARY | 2024-09-02 10:38 | XMS_ITS | Encounter Summary ---
Author Organization [facility] Healthcare Address [address] [place] [address] Care Team Providers Care Retail Coverage Merchandiser Name Role Phone Lamar Pollard CECE Primary Care Provider [phone] Encounter Details Date Type Department Care Team (Latest Contact Info) Description 08/10/2024 Results Follow-Up [facility] Specialists [facility] [id number] [place] [id number] [place] [address] [address] Comprehensive metabolic panel, Albumin Creatinine Ratio, Urine, Lipid panel, eGFR Social History Tobacco Use Types Packs/Day Years Used Date Smoking Tobacco: Never Passive Smoke Exposure: Never Smokeless Tobacco: Never Alcohol Use Standard Drinks/Week Comments Yes 0 (1 standard drink = 0.6 oz pur e alcohol) socially [employer] Utilities Answer Date Recorded In the past 12 months has [employer], gas, oil, or water [employer] threatened to shut off services in your [...] 01/02/2024 How often do you attend [facility] or mandaeism services? 1 to 4 times per year 01/02/2024 Do you belong to any clubs o r organizations such as buddhist groups, unions, fraternal or athletic groups, or [...] any time in the past 12 m [facility], were you homeless or living in a snf (including now)? No 01/02/2024 Personal Safety Answer Date Recorded Have you ever been in or are you currently in a harmful physical or emotional relationship or is someone making you feel afraid or unsafe? 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
--- OUTSIDE RECORDS SUMMARY | 2024-09-02 10:38 | XMS_ITS | Encounter Summary ---
Author Organization [facility] Address [address] [place] [address] Care Team Providers Care Printing Plate Clerk Name Role Phone Unavailable Primary Care Provider Unavailabl e Encounter Details Date Type Department Care Team (Late st Contact Info) Description 08/31/2024 External Device Data [facility] ABSTRACTION Provider, Abstract NO ADDRESS ON FILE Social History Tobacco Use Types Packs/Day Years Used Date Smoking Tobacco: Never Smokeless Tobacco: Never Alcohol Use Standard Drinks/Week Comments Yes 0 (1 standard drink = 0.6 oz pur e alcohol) occasional Sex and Gender Information Value Date Recorded Sex Assigned at Not on file Legal 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
--- OUTSIDE RECORDS SUMMARY | 2024-09-02 10:38 | XMS_ITS | Clinical Summary ---
Author Organization [facility] Address [address] [place] [address] Care Team Providers Care Diamond Grinder Name Role Phone Unavailable Primary Care Provider Unavailabl e Allergies Active Allergy Reactions Criticality Noted Date Comments Metformin Diarrhea High 05/18/2024 Bnfhxod-Emr-Miw Reductase Inhibitors Muscle Pain Medium 02/02/2019 Medications apixaban (ELIQUIS) 5 mg tablet Take 5 mg by mouth 2 times daily. 07/23/19 25 Active Contour Next Test Strips Strip 1 Strip by See Admin Instructions route see administration instructions. 05/30/19 25 Active Farxiga 10 mg Tablet Take 10 mg by mouth daily. 08/10/19 25 2025 Active fenofibrate nanocrystallized (TRICOR) 145 mg tablet Take 145 mg by mouth daily. 07/23/19 25 2025 Active hydroCHLOROthiazide 12.5 mg tablet Take 12.5 mg by mouth daily. 07/23/19 25 2025 Active losartan (COZAAR) 100 mg tablet Take 100 mg by mouth daily. 07/23/19 Active metoprolol succinate (TOPROL XL) 100 mg Extended Release 24 hour tablet Take 150 mg by mouth daily. 07/23/19 Active omega-3 acid ethyl esters (LOVAZA) 1 gram Capsule Take 2 Grams by mouth 2 times daily. 07/23/19 25 2025 Active semaglutide (OZEMPIC) 2 mg/dose (8 mg/3 mL) Pen Injector Inject 2 mg by subcutaneous injection every 7 days. 08/10/19 25 2025 Active Active Problems No known active problems Encounters Date Type Department Care Team Description 08/31/2024 External Device Data [facility] ABSTRACTION Provider, Abstract 08/24/2024 External Device Data [facility] ABSTRACTION Provider, Abstract 08/24/2024 External Device Data [facility] ABSTRACTION Provider, Abstract 08/24/2024 External Device Data [facility] ABSTRACTION Provider, Abstract 08/17/2024 1:30 PM CDT Office Visit [facility] Oncology and Hematology - [place] [address] [address] Noe Garsia MD Acute deep vein thrombosis (DVT) of popliteal vein of right lower extremity (CMS/HCC) (Primary Dx) from Last 3 Months Family History Medical History Relation Name Comments No Known Problems Brother 1 No Known Problems Brother 2 No Known Problems Brother 3 Diabetes Child 1 Heart Disease Father Diabetes Mother No Known Problems Sister 1 No Known Problems Sister 2 Relation Name Status Comments Brother 1 Alive Brother 2 Alive Brother 3 Alive Child 1 Alive Child 2 Alive Child 3 Alive Child 4 Alive Father Mother Sister 1 Alive Sister 2 Social History Tobacco Use Types Packs/Day Years Used Date Smoking Tobacco: Never Smokeless Tobacco: Never Alcohol Use Standard Drinks/Week Comments Yes 0 (1 standard drink = 0.6 oz pur e alcohol) occasional Sex and Gender Information Value Date Recorded Sex Assigned at Not on file 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 Gender Identity Not on file Sexual Orientation Not on file Last Filed Vital Signs Vital Sign Reading Time Taken Comments Blood Pressure 122/83 08/17/2024 1:27 PM CDT Pulse 93 08/17/2024 1:27 PM CDT Temperature 36.7 C (98 F) 08/17/2024 1:27 PM CDT Respiratory Rate 15 08/17/2024 1:27 PM CDT Oxygen Saturation 95% 08/17/2024 1:27 PM CDT Inhaled Oxygen Concentration - - Weight 134.2 kg (295 lb 14.4 oz) 08/17/2024 1:27 PM CDT Height 177.8 cm (5' 10 ) 08/17/2024 1:27 PM CDT Body Mass Index 42.46 08/17/2024 1:27 PM CDT Plan of Treatment Upcoming Encounters Date Type Department Care Team (Late st Contact Info) Description 09/09/2024 4:30 PM CDT Telephone Check Up [facility] Oncology and Hematology - [place] [phone] Noe Garsia MD [address] [facility] [address] [place] [address] Health Maintenance Due Date Last Done Comments DIABETES ANNUAL RETINAL EXAM 1968 DIABETES MICROALBUMIN ANNUAL SCREEN 1968 LDL CHOLESTEROL ANNUAL 1968 COLORECTAL SCREENING 07/14/1995 Colorectal Cancer Screening 07/14/1995 FIT-DNA Q 3 years 07/14/1995 FIT/FOBT Q 1 year 07/14/1995 Flex Sig/CT Colonography Q 5 years 07/14/1995 ZOSTER VACCINE (1 of 2) 2000 RSV VACCINE (60+ or ) (1 - Risk 60-74 years 1-dose series) 2010 PNEUMOCOCCAL VACCINE 50+ YEA RS (2 of 2 - PCV) 12/10/2017 12/10/2016 INFLUENZA VACCINE (#1) 2023 DTAP/TDAP/TD VACCINES (2 - Td or Tdap) 12/12/2024 DIABETES ANNUAL FOOT EXAM 01/28/2025 01/29/2024 DIABETES HBA1C Q 6 MONTHS 02/08/2025 08/09/2024, Insurance MEDICARE PART A AND B [facility] [employer] [facility]
--- OUTSIDE RECORDS SUMMARY | 2024-09-02 10:38 | XMS_ITS | Encounter Summary ---
Author Organization [facility] Healthcare Address [address] [place] [address] Care Team Providers Care Fishing Hand Name Role Phone Lamar Pollard CAR BUILDER Primary Care Provider [phone] Encounter Details Date Type Department Care Team (Late st Contact Info) Description 08/27/2024 Results Follow-Up [facility] Medical Group Primary Care at [address] [address] Lamar Pollard NP [address] [place] [address] [address] [place] [address] XR Spine Thoracic 3 Vw Social History Tobacco Use Types Packs/Day Years Used Date Smoking Tobacco: Never Passive Smoke Exposure: Never Smokeless Tobacco: Never Alcohol Use Standard Drinks/Week Comments Yes 0 (1 standard drink = 0.6 oz pur e alcohol) socially [employer] Utilities Answer Date Recorded In the past 12 months has [employer], gas, oil, or water [employer] threatened to shut off services in your [...] week 01/02/2024 How often do you attend [facility] or [facility] services? 1 to 4 times per year 01/02/2024 Do you belong to any clubs o r organizations such as islam groups, unions, fraternal or athletic groups, or [...] any time in the past 12 m [facility], were you homeless or living in a longterm (including now)? No 01/02/2024 Personal Safety Answer Date Recorded Have you ever been in or are you currently in a harmful physical or emotional relationship or is someone making you feel afraid or unsafe? 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
--- OUTSIDE RECORDS SUMMARY | 2024-09-02 10:38 | XMS_ITS | Referral Summary ---
Author Organization [facility] Medical Office Building [address] Address [address] [place] [address] Care Team Providers Care Head Pumper Name Role Phone Lamar Pollard NP Primary Care Provider [phone] Encounters Date Type Department Care Team Description 08/27/2024 Results Follow-Up [facility] Primary Care at [address] [phone] Lamar Pollard NP XR Spine Thoracic 3 Vw 08/26/2024 3:15 PM CDT Ancillary Procedure [facility] Imaging at [address] [phone] Thoracic back pain, unspecified back pain laterality, unspecified chronicity 08/26/2024 2:30 PM CDT Office Visit [facility] Primary Care at [address] [phone] Lamar Pollard NP Thoracic back pain, unspecified back pain laterality, unspecified chronicity (Primary Dx) 08/10/2024 Results Follow-Up [facility] Special[facility] of [address] [phone] Sanaz Nolen MD Comprehensive metabolic panel, Albumin Creatinine Ratio, Urine, Lipid panel, eGFR 08/09/2024 1:30 PM CDT - 08/09/2024 11:59 PM CDT Hospital Encounter [address] [address] Type 2 diabetes mellitus with hyperglycemia, without long-term current use of insulin (HCC); Hypertension associated with diabetes (HCC); Hyperlipidemia associated with type 2 diabetes mellitus (HCC); Stage 3a chronic kidney disease (HCC) Discharge Disposition: Discharge to home or self care 08/09/2024 1:30 PM CDT Lab [facility] Outpatient Lab at [address] [phone] Type 2 diabetes mellitus with hyperglycemia, without long-term current use of insulin (HCC) (Primary Dx) 08/09/2024 1:15 PM CDT Office Visit [facility] [address] [place] [phone] Sanaz Nolen MD Type 2 diabetes mellitus with hyperglycemia, without long-term current use of insulin (HCC) (Primary Dx); Hypertension associated with diabetes (HCC); Hyperlipidemia associated with type 2 diabetes mellitus (HCC); Stage 3a chronic kidney disease (HCC); Morbid obesity with BMI of 40.0-44.9, adult (HCC) 07/30/2024 Telephone [facility] Primary Care at [address] [phone] Lamar Pollard NP 07/28/2024 Orders Only [facility] Neurosurgery [address] [facility] Medical Office Building [address] [place] [address] Lucio Larson PA Spinal stenosis, lumbar region without neurogenic claudication (Primary Dx) 07/22/2024 9:30 AM CDT Office Visit [facility] Primary Care at [address] [phone] Lamar Pollard NP Morbid obesity [...] (deep vein thrombosis) from Last 3 Months Allergies Active Allergy Reactions Criticality Noted Date Comments Metformin Diarrhea High 05/18/2024 [id number] Reductase Inhibitors Muscle pain Medium 02/02/2019 Medications Contour Next Test Strips strip USE TO CHECK BLOOD SUGAR ONCE DAILY 05/30/19 25 Active apixaban (ELIQUIS) 5 mg tabletIndications:Hi story of pulmonary embolism,History of DVT (deep vein thrombosis) Take 1 tablet (5 mg total) by mouth 2 (two) times a day 60 tablet 3 07/23/19 25 Active hydroCHLOROthiazide 12.5 mg tabletIndications:Hy pertension associated with diabetes ([facility]) Take 1 tablet (12.5 mg total) by [...] yperlipidemia associated with type 2 diabetes mellitus (HCC),Statin intolerance Take 2 capsules (2 g total) by mouth 2 (two) times a day 360 capsule 3 07/23/19 25 026 Active Farxiga 10 mg tabletIndications:Ty pe 2 diabetes mellitus with hyperglycemia, without long-term current use of insulin ([facility]) Take 1 tablet (10 mg total) by mouth daily 90 tablet 3 08/10/19 25 026 Active semaglutide (OZEMPIC) 2 mg/dose (8 mg/3 mL) pen injector injectionIndications :Type 2 diabetes mellitus with hyperglycemia, without long-term current use of insulin ([facility]) Inject 2 mg under the skin once a week 9 mL 08/10/19 25 026 Active semaglutide (OZEMPIC) 2 mg/dose (8 mg/3 mL) pen injector injectionIndications :Type 2 diabetes mellitus with hyperglycemia, without long-term current use of insulin ([facility]) Inject 2 mg under the skin once a week 9 mL 3 01/29/20 24 025 Discontin ued(Reord er) Farxiga 10 mg tabletIndications:Ty pe 2 diabetes mellitus with hyperglycemia, without long-term current use of insulin ([facility]) Take 1 tablet (10 mg total) by mouth daily 90 tablet 3 01/29/20 025 Discontin ued(Reord er) Active Problems Problem [...] CDT): Assessment & Plan (05/18/2024 3:05 PM REGULATORY COORDINATOR): Chronic problem. A1c increased from 6.1% 12/31/23 [...] daily Assessment & Plan (05/18/2024 3:02 PM REGULATORY COORDINATOR): Controlled on current losartan 100mg daily, metoprolol XL 150mg daily, HCTZ 12.5mg daily. Assessment & Plan (01/29/2024 8:59 AM CDT): Chronic, well controlled Continue losartan, hydrochlorothiazide and metoprolol Hyperlipidemia associated with type 2 diabetes ruth magaña 01/29/2024 Assessment & Plan (07/23/2024 5:21 PM CDT): Orders: fenofibrate nanocrystallized (TRICOR) 145 mg tablet; Take 1 tablet (145 mg total) by mouth daily omega-3 fatty acids (LOVAZA) 1 gram capsule; Take 2 capsules (2 g total) by mouth 2 (two) times a day Assessment & Plan (05/18/2024 2:37 PM REGULATORY COORDINATOR): Chronic problem. Currently taking fenofibrate 145mg daily & lovasa 2gm bid. Reports statin intolerance. Assessment & Plan (01/29/2024 8:59 AM CDT): Started intolerant Continue [place] 3 fatty acids and fenofibrate Morbid obesity [...] day Assessment & Plan (05/18/2024 3:05 PM REGULATORY COORDINATOR): Chronic problem. Unable to tolerate statins. Currently taking Fenofibrate 145mg & Lovaza 2gm bid. Hearing loss 02/02/2019 Assessment & Plan (02/02/2019 11:35 AM CDT): Hearing test and VNG Obtain previous work up from [facility] Have eye examination Gastroesophageal reflux disease without [...] present 12/31/2023 07/22/2024 Dizziness and giddiness 02/02/2019 04/ Assessment & Plan (02/02/2019 11:36 AM CDT): Hearing test and VNG Obtain previous work up from [facility] Have eye examination Consider repeating Carotid Immunizations Immunization Administration Dates Next Due Pneumococcal Polysaccharide PPV23 12/10/2016 Tdap 12/12/2014 Social History Tobacco Use Types Packs/Day Years Used Date Smoking Tobacco: Never Passive Smoke Exposure: Never Smokeless Tobacco: Never Tobacco Cessation:Counseling Given: Not Answered Alcohol Use Standard Drinks/Week Comments Yes 0 (1 standard drink = 0.6 oz pur e alcohol) socially shopp Utilities Answer Date Recorded In the past 12 months has [employer] electric, gas, oil, or water [employer] threatened to shut off services in your [...] week 01/02/2024 How often do you attend chur or christian services? 1 to 4 times per year 01/02/2024 Do you belong to any clubs o r organizations such as anabaptist groups, unions, fraternal or athletic groups, or [...] any time in the past [facility], were you homeless or living in a assisted (including now)? No 01/02/2024 Personal Safety Answer Date Recorded Have you ever been in or are you currently in a harmful physical or emotional relationship or is someone making you feel afraid or unsafe? Denies 12/31/2023 Sex and Gender Information Value Date Recorded Sex Assigned at Not on file Legal Sex Male 4:04 AM REGULATORY COORDINATOR Gender Identity Not on file Sexual Orientation [...] 08/26/2024 2:29 PM CDT Plan of Treatment Not on file Procedures Procedure Name Priority Date/Time Associated Diagnosis [...] hyperglycemia, without long-term current use of insulin ([facility]) DIABETES EYE EXAM Routine 01/30/2024 2:59 PM CDT DNA STOOL Routine 03/28/2022 from Last 3 [...] Saroj Hurtado M.D. BECKA T: Report ID: [id number] Reading Location: [id number] Procedure Note Saroj Hurtado MD - 08/26/2024 [...] Saroj Hurtado M.D. BECKA T: Report ID: [id number] Reading Location: [place] [address] Lamar Pollard NP IMG XR PROCEDURES Final Resul t * [...] LAB BLOOD ORDERABLE S Final Result [facility] [address] [address] Department [place] [address] * Albumin Creatinine Ratio, Urine (08/09/2024 1:30 PM CDT) Albumin Ur <12.0 mg/L Comment: Interpretive Data No reference range established. Current interpretive data was last revised 2018. Creatinine Ur 161.1 mg/dL [facility] Comment: Interpretive Data No reference range established. Current interpretive data was last revised 2018. Albumin Creatinine Ratio, Ur <7 1 - 29 mg/g [facility] Urine 08/09/2024 1:30 PM CDT 08/09/2024 9:46 PM CDT us Sanaz Ribera MD LAB URINE ORDERABLE S Final Result [facility] [address] [address] Department [place] [address] * (ABNORMAL) Lipid panel (08/09/2024 1:30 PM [...] on 2017. HDL 31(L) >=40 mg/dL [facility] RODGERS Comment: Interpretive Data Ages [...] last revised on 2017. Chol/HDL ratio 7 [facility] Blood 08/09/2024 1:30 PM CDT 08/09/2024 9:46 PM CDT us Sanaz Ribera MD LAB [place]OD [place] [address] [address] Department [place] [address] * Comprehensive metabolic panel (08/09/2024 1:30 PM [...] classification and Diagnosis of Diabetes Diabetes Care 2021; 46: S19-S40. Current interpretive data was last [...] 1:30 PM CDT 08/09/2024 9:46 PM CDT Result [facility] Sanaz Ribera MD LAB BLOOD ORDERABLE S Final Result [facility] [address] [address] Department [place] [address] * POCT hemoglobin A1c (08/09/2024 1:12 PM CDT) Hemoglobin A1C, POC 6.4 4.0 - 5.6 % Blood 08/09/2024 1:12 PM CDT Result [facility] Sanaz Ribera MD POINT OF CARE TEST ORDERABLES Final Result * POCT glucose (08/09/2024 1:10 PM CDT) Glucose Blood, POC 151 mg/dL Blood 08/09/2024 1:10 PM CDT Result [facility] aSnaz Ribera MD POINT OF CARE TEST ORDERABLES Final Result * DIABETES EYE EXAM (01/30/2024 2:59 PM CDT) Historical Provider HEALTH MAINTENANCE Final Result * DNA STOOL (03/28/2022) Scribed Stool DNA - Cologuard Negative 03/28/2022 Historical Provider HEALTH MAINTENANCE Final Result from Last 3 Months or Most Recently Relevant to Health Maintenance Insurance MEDICARE [facility] MEDICARE [place] [employer] Advance Directives For more information, please contact: [phone] * Full Code (Latest Code Status on File) Date Activated Date Inactivated Comments 12/31/2023 2:57 AM 01/01/2024 5:21 PM Care Teams Head Pumper Relationship Specialty Start Date End Date Lamar Pollard NP [address] [facility] [address] [place] [address] PCP - General Internal Medicine 07/22/24
== END 2024-09-02 10:29 | disposition home or self-care (01) ==
PROVIDERS: PCP Nurse Practitioner; Visit Provider Internal Medicine Hematology & Oncology
DX: I82.431 Acute embolism and thrombosis of right popliteal vein (principal)
CPT/HCPCS: 93971